=== PATIENT | female | born 1965 | race Caucasian/White ===

== ENCOUNTER 2017-03-25 05:59 | Inpatient (IN) | payer OTHER ==
[2017-02-19 13:16] VITALS: BMI 40.0
--- NOTE | 2017-02-19 13:37 | PAT Medication Instructions ---
Service Date February 19, 2017. Current Home Medication List Aspirin (Aspirin Ec), 81 MG PO DAILY PRN for Pain Atenolol (Tenormin), 50 MG PO HS Biotin (Biotin), 2 TAB PO HS Calcium/Vitamin D (Os-Roderick 500 Plus D), 2 TAB PO HS Fish Oil (Lewellen-3), 2 CAP PO HS Yzocsbqtzje-Mzfzogzvyoo-Ylj C- (Glucosamine Chondroitin), 1 TAB PO HS Ibuprofen (Advil), 400 MG PO 2XWK PRN for Pain Medication Instructions For Your Scheduled Surgery - Hold the following medications 2 weeks prior to surgery: Biotin (Biotin), 2 TAB PO HS Fish Oil (Lewellen-3), 2 CAP PO HS Wovszyqgqtu-Cmujcusptiv-Qnl C- (Glucosamine Chondroitin), 1 TAB PO HS - Hold the following medications per surgeon's instructions: Ibuprofen (Advil), 400 MG PO 2XWK PRN for Pain - Take the following medications as scheduled the night before surgery: Atenolol (Tenormin), 50 MG PO HS Calcium/Vitamin D (Os-Roderick 500 Plus D), 2 TAB PO HS Aspirin (Aspirin Ec), 81 MG PO DAILY PRN for Pain Nothing to eat or drink after midnight If you have any questions please call us at [phone] or [phone] or [phone]
[2017-02-19 14:16] LABS: BASO % 0.6 %; BASO ABS # 0.04 K/uL (0-0.2); COMPLETE YES; EOS % 2.6 %; HEMATOCRIT 41.3 % (37-47); IG% 0.2 %; LYMPH ABS # 1.99 K/uL (1.2-3.4); MEAN CELL VOLUME 91.8 fL (80-100); MEAN CORPUSCULAR HEMOGLOBIN 29.8 pg (25-34); MEAN CORPUSCULAR HGB CONC 32.4 g/dl (32-36); MONO % 6.2 %; NEUT % 60.4 %; PLATELET COUNT 251 K/uL (130-400); WHITE BLOOD COUNT 6.64 K/uL (4.8-10.8)
[2017-02-19 14:32] LABS: PROTHROMBIN TIME (PATIENT) 11.1 SECONDS (9.0-12.0)
[2017-02-19 14:51] LABS: URINE APPEARANCE CLEAR (CLEAR); URINE BILIRUBIN NEG (NEG); URINE COLOR YELLOW; URINE NITRITE NEG (NEG); URINE SPECIFIC GRAVITY 1.024 (1.000-1.030); UROBILINOGEN NEG (NEG); ZZUR CULT IF INDIC CLEAN CATCH NO
[2017-02-19 14:56] LABS: MANUAL MICROSCOPIC REQUIRED? NO; REVIEW REQ? NO
[2017-02-19 15:05] LABS: BUN/CREATININE RATIO 14.2 (10-20); CALCIUM 8.9 mg/dl (8.5-10.1); CREATININE 0.96 mg/dl (0.60-1.20); POTASSIUM 3.9 mmol/L (3.5-5.1)
[~2017-03-25] VITALS: Ht 165.1 cm; Wt 109.0 kg
[2017-03-25] VITALS (8 sets, daily range): BP systolic 92–130; BP diastolic 57–76; PULSE 67–100; TEMP 36.5–37; O2SAT 93–100; Ht 165.1 cm; Wt 109.0 kg
[~2017-03-25 05:59] MED LIST: ASPI81TA28 PO; ATEN50TA8 PO; BIOT1TAB5 PO; CALC500C70 PO; GLUCTAB7 PO; IBUP-1050 PO; OMEG10007 PO
[2017-03-25] MEDS ORDERED: CeleBREX 200 MG CAP PO SCH (06:00)
[2017-03-25] MEDS ORDERED: CEFAZOLIN 2000 MG/60 ML D5W 60 ML IV SCH (06:00)
[2017-03-25] MEDS ORDERED: DEXAMETHASONE 4 MG TAB PO SCH (06:00)
[2017-03-25] MEDS: ROPIVACAINE 5MG/ML 30 ML 150 MG, BUPIVACAINE/EPINEPHR 0.5% MPF 30 ML, KETOROLAC TROMETH... INFIL SCH ×14 (06:00→09:21)
[2017-03-25] MEDS ORDERED: POLYMYXIN B SULFATE 100,000 UNITS in NSS 100ML IR SCH (06:00)
[2017-03-25] MEDS ORDERED: GABAPENTIN 300 MG CAP PO SCH (06:00)
[2017-03-25] MEDS ORDERED: ACETAMINOPHEN 500 MG TAB PO SCH (06:00)
[2017-03-25] MEDS ORDERED: OXYCODONE HCL 10 MG TABCR (OXYCONTIN) PO SCH (06:00)
[2017-03-25] MEDS ORDERED: LACTATED RINGER'S 1000ML 500 ML IV ONE (06:00)
[2017-03-25] MEDS ORDERED: LACTATED RINGER'S 1000ML 1,000 ML IV SCH ×2 (06:00)
[2017-03-25] MEDS ORDERED: FAMOTIDINE 20 MG TAB PO SCH (06:00)
[2017-03-25] MEDS ORDERED: METOCLOPRAMIDE HCL 10 MG TAB PO SCH (06:00)
[2017-03-25] MEDS ORDERED: VANCOMYCIN INJ 400 MG in NSS 100ML IR SCH (06:00)
[2017-03-25] MEDS ORDERED: BUPIVACAINE 0.5 % 5 MG/1 ML PF 10ML VIAL ONE (06:30)
[2017-03-25] MEDS: TRANEXAMIC ACID INJ 1,000 MG in SODIUM CHLORIDE 0.9% 100ML 100 ML IV SCH ×2 (06:30→07:30)
[2017-03-25] MEDS ORDERED: BUPIVACAINE 0.25% 30 ML VIAL ONE (06:30)
--- NOTE | 2017-03-25 06:45 | History and Physical ---
History & Physical Date Mar 25, 2017. Chief Complaint R KNEE PAIN History of Present Illness The patient is a 52 year old female with complaints of 2 YRS R KNEE PAIN 8/10. C /O PAIN INSTABILITY AND DECREADED ROM. CANNOT WALK 2 BLOCKS, HAS FAILED NSAIDS AND INJECTIONS. XRAY CW SEVERE OA W DEFORMITY AND SCLEROSIS R GREATER THAN L. Past Medical/Surgical History Medical Problems: (1) Bilateral tubal ligation (2) Dilation and curettage (3) Hypertension Nos Additional History Hepatic Disease: No Endocrine Disorder: No Kidney Disease: No Hypertension: Yes Heart Disease: No Bleeding Tendencies: No Infectious Diseases: No Allergies Coded Allergies: No Known Allergies (Unverified , 02/19/17) Home Medications Scheduled Atenolol (Tenormin), 50 MG PO HS Biotin (Biotin), 2 TAB PO HS Calcium/Vitamin D (Os-Roderick 500 Plus D), 2 TAB PO HS Fish Oil (Plains-3), 2 CAP PO HS Optxnmmsrpc-Diijucgjiap-Wks C- (Glucosamine Chondroitin), 1 TAB PO HS Scheduled PRN Aspirin (Aspirin Ec), 81 MG PO DAILY PRN for Pain Ibuprofen (Advil), 400 MG PO 2XWK PRN for Pain Physical Examination Skin: warm/dry, no rash Eyes: normal inspection, EOMI, sclerae normal ENT: normal ENT inspection, pharynx normal Head: normocephalic, atraumatic Neck: supple, no adenopathy, trachea midline Respiratory/Chest: lungs clear, normal breath sounds, no respiratory distress Cardiovascular: regular rate, rhythm, no edema, no murmur Abdomen / GI: normal bowel sounds, non tender Back: normal inspection, + pertinent finding (ROM 0 TO 120 VARUS PAINFUL ROM 2PLUS EFFUSION 3 TO 5MM MEDIAL LAXITY DIFFUSE PAIN ) Diagnosis DJD KNEE HTN OBESITY ASA Classification: ASA Class II Plan of Treatment R TKA
[2017-03-25] MEDS ORDERED: MIDAZOLAM HCL 1 MG/ML 2ML VIAL ONE ×2 (07:00)
[2017-03-25] MEDS ORDERED: FENTANYL CITRATE INJ 50 MCG/1 ML 2 ML VIAL ONE (07:00)
[2017-03-25] MEDS ORDERED: PROPOFOL IV EMULSION 10 MG/ML 20 ML VIAL IV ONE (07:01)
[2017-03-25] MEDS ORDERED: LIDOCAINE HCL 2% 2 ML VIAL (20MG/ML) ONE (07:01)
[2017-03-25] MEDS ORDERED: EpHEDrine SULFATE 50MG/5ML SYR ONE (07:01)
[2017-03-25] MEDS ORDERED: BACITRACIN 50000 UNIT VIAL ONE (07:19)
[2017-03-25] MEDS ORDERED: ONDANSETRON INJ 2 MG/ML 2 ML VIAL ONE (09:01)
[2017-03-25] MEDS ORDERED: ONDANSETRON INJ 2 MG/ML 2 ML VIAL IV PRN ×2 (09:15→10:15)
[2017-03-25] MEDS ORDERED: KETOROLAC TROMETHAMINE 30 MG/ML VIAL IV. PRN ×2 (09:15→10:15)
[2017-03-25] MEDS ORDERED: EpHEDrine SULFATE INJ 50 MG/ML AMP IV PRN (09:15)
[2017-03-25] MEDS ORDERED: PHENYLEPHRINE 100MCG/ML 5ML SYR IV PRN (09:15)
[2017-03-25] MEDS ORDERED: HYDROmorphone INJ 2 MG/ML SYR/VIAL IV PRN (09:15)
[2017-03-25] MEDS ORDERED: ATROPINE SULFATE 0.1 MG/ML 5ML SYR IV PRN (09:15)
[2017-03-25] MEDS ORDERED: BUPIVACAINE/EPINEPHRINE 0.25% 1:200,000 30 ML VIAL ONE (10:00)
[2017-03-25] MEDS ORDERED: POVIDONE-IODINE OP SOLN 30 ML BTL ONE (10:00)
[2017-03-25] MEDS ORDERED: ORTHO JOINT ANESTHETIC ONE (10:00)
--- NOTE | 2017-03-25 10:02 | [facility] Post Operative Brief Note ---
Immediate Operative Summary Operative Date Mar 25, 2017. Pre-Operative Diagnosis Degenerative joint disease right knee Post-Operative Diagnosis Same as pre-operative Procedure(s) Performed Right total knee arthroplasty Surgeon Dr. Jonnathan Boucher MD Wound Specialist Surgeon(s) John Dawson PA-C Estimated Blood Loss 75ml Findings SEVERE DZ Specimens A. Bone and tissue right knee Complication(s) None Disposition Recovery Room / PACU
[2017-03-25] MEDS ORDERED: MoRPHine SULFATE 2 MG/ML CARP IV PRN (10:15)
[2017-03-25] MEDS ORDERED: ZOLPIDEM TARTRATE 5 MG TAB PO PRN (10:15)
[2017-03-25] MEDS ORDERED: OXYCODONE HCL IR 5 MG TAB (IMMEDIATE RELEASE) PO PRN (10:15)
[2017-03-25] MEDS ORDERED: ALUMINUM/MAGNESIUM/SIMETH (MAALOX MAX) 30 ML UDC PO PRN (10:15)
[2017-03-25] MEDS ORDERED: BISACODYL 10 MG SUPP PR PRN (10:15)
[2017-03-25] MEDS ORDERED: METOCLOPRAMIDE HCL INJ 5 MG/ML 2 ML VIAL IV PRN (10:15)
[2017-03-25] MEDS ORDERED: SOD PHOSPHATE/SOD BIPHOSPHATE ENEMA 132 ML BTL PR PRN (10:15)
[2017-03-25] MEDS ORDERED: MAGNESIUM HYDROXIDE SUSP 30 ML UDC PO PRN (10:15)
[2017-03-25] MEDS ORDERED: DiphenhydrAMINE HCL 50 MG/ML VIAL IV PRN (10:15)
--- NOTE | 2017-03-25 11:06 | DIAGNOSTIC IMAGING REPORT ---
RIGHT KNEE 1 OR 2 VIEWS ROUTINE CLINICAL HISTORY: Status post total right knee arthroplasty. COMPARISON: None FINDINGS: Alignment of the total right knee arthroplasty is anatomic. There is no fracture or unexpected radiopaque foreign body. Drains are in place. IMPRESSION: Expected findings following total right knee arthroplasty. Electronically signed by: Tomi Neri M.D. 03/25/2017 11:04 AM Dictated Date/Time: 03/25/2017 11:04 AM
--- NOTE | 2017-03-25 11:37 | Anesthesiology Progress Note ---
Anesthesia Post Op Note Date & Time Mar 25, 2017 at 11:38 Vital Signs Pain Intensity: 0 Vital Signs Past 12 Hours Date Time Temp Pulse Resp B/P (MAP) Pulse Ox O2 Delivery O2 Flow Rate FiO2 03/25/17 11:15 36.2 71 15 111/66 99 Nasal Cannula 2 03/25/17 11:05 75 18 96/58 96 Nasal Cannula 2 03/25/17 10:55 75 15 97/66 96 Nasal Cannula 2 03/25/17 10:45 79 10 94/50 97 Nasal Cannula 2 03/25/17 10:39 36.0 85 12 97/53 97 Nasal Cannula 2 03/25/17 06:47 36.5 70 20 105/76 96 Room Air Notes Mental Status: alert / awake / arousable, participated in evaluation Pt Amnestic to Procedure: Yes Nausea / Vomiting: adequately controlled Pain: adequately controlled Airway Patency, RR, SpO2: stable & adequate BP & HR: stable & adequate Hydration State: stable & adequate Anesthetic Complications: no major complications apparent
[2017-03-25] MEDS: D5W AND 1/2NSS + 20MEQ KCL 1,000 ML IV SCH ×2 (12:52→22:27)
[2017-03-25] MEDS: ACETAMINOPHEN 500 MG TAB PO SCH ×2 (13:18→21:27)
[2017-03-25] MEDS: TRAMADOL HCL 50 MG TAB PO PRN ×2 (15:43→19:48)
[2017-03-25] MEDS: CEFAZOLIN IV 2,000 MG in DEXTROSE 5% 50ML 50 ML IV SCH (15:44)
[2017-03-25] MEDS ORDERED: TRANEXAMIC ACID INJ 1,000 MG in SODIUM CHLORIDE 0.9% 100ML 100 ML IV ONE (17:00)
[2017-03-25] MEDS ORDERED: NURSING VERBAL MED ORDER ONE (18:15)
[2017-03-25] MEDS ORDERED: SENNA 8.6 MG TAB PO SCH (21:00)
[2017-03-25] MEDS ORDERED: CALCIUM 600MG + VIT D 400 IU TAB PO SCH (21:00)
[2017-03-25] MEDS: ASPIRIN 81 MG ECTAB PO SCH (21:26)
[2017-03-25] MEDS: CeleBREX 200 MG CAP PO SCH (21:27)
--- NOTE | 2017-03-25 21:40 | OPERATIVE REPORT ---
DATE OF OPERATION: 03/25/2017 PREOPERATIVE DIAGNOSIS: Degenerative arthritis, right knee. POSTOPERATIVE DIAGNOSIS: Same. PROCEDURE: Right total knee patient matched implant. SURGEON: Dr. Boucher. ASSISSTANT: LUIZ Dowell. ANESTHESIA: Spinal. BLOOD LOSS: 75 mL. REPLACEMENT FLUIDS: 1800 mL crystalloid. DRAINS: Hemovac x2. CULTURES: None. COMPLICATIONS: None. COMPONENTS USED: [employer] [facility] Knee System: Femur size 5, tibia size 4 x 11, patella size 35. NOTE: LUIZ Dowell, was present and assisted throughout due to the complicated nature of this case. He helped with preparation and set up. He first assisted throughout and personally closed the capsule, subcutaneous and skin layers and applied the postoperative dressing. DESCRIPTION: Following satisfactory spinal, the patient was supine. A tourniquet was placed but not inflated. The lower extremity was prepared with ChloraPrep and draped sterilely. Following a surgical time-out, a midline incision was made with a median trivector approach. The knee showed marked grade 4 changes in all compartments. The cruciate ligaments were deteriorated and were excised. The patient matched femoral block was applied. Femoral distal rotation and resection was set and completed. The 4-in-1 block was used to finish preparation of the femur. The patient matched tibial block was applied. Tibial resection was completed. The patella was freehand cut. Soft tissue balancing was then completed and a trial reduction showed good tensioning stability on the collateral ligament, and the patella tracked well. The trial components were removed, the capsule was prepared with the orthopedic cocktail and after irrigation, the components were cemented using Simplex G cement. A Betadine soak was performed. After 3 minutes, the Betadine was irrigated. Two drains were placed. The arthrotomy was closed with a running suture of 0 V-Loc and reinforced with 1 Vicryl, the subcutaneous tissues with 2-0 Vicryl. Skin with a running subcuticular stitch of 3-0 V-Loc. Dermabond and a dry dressing were applied. The patient was returned to her bed in stable condition. I attest to the content of the Intraoperative Record and any orders documented therein. Any exceptions are noted below. MTDD
[2017-03-26] MEDS: TRAMADOL HCL 50 MG TAB PO PRN ×3 (00:51→11:53)
[2017-03-26] MEDS: CEFAZOLIN IV 2,000 MG in DEXTROSE 5% 50ML 50 ML IV SCH (00:51)
[2017-03-26 04:07] VITALS: BP 108/70; PULSE 71; TEMP 36.6; O2SAT 97
[2017-03-26 05:39] LABS: HEMATOCRIT 35.4 % (37-47); MEAN CELL VOLUME 91.2 fL (80-100); MEAN CORPUSCULAR HEMOGLOBIN 29.4 pg (25-34); MEAN CORPUSCULAR HGB CONC 32.2 g/dl (32-36); MEAN PLATELET VOLUME 10.9 fL (7.4-10.4); PLATELET COUNT 220 K/uL (130-400); RED BLOOD COUNT 3.88 M/uL (4.2-5.4); WHITE BLOOD COUNT 14.19 K/uL (4.8-10.8)
[2017-03-26 06:14] LABS: BUN/CREATININE RATIO 14.1 (10-20); CALCIUM 8.3 mg/dl (8.5-10.1); CREATININE 0.95 mg/dl (0.60-1.20); POTASSIUM 4.3 mmol/L (3.5-5.1)
[2017-03-26] MEDS: ACETAMINOPHEN 500 MG TAB PO SCH (06:28)
[2017-03-26] MEDS: CeleBREX 200 MG CAP PO SCH (06:28)
--- NOTE | 2017-03-26 07:04 | Orthopedic Progress Note ---
Orthopedic Progress Note Date of Service Mar 26, 2017. Subjective Post OP Day: 1 Reports: feeling well, pain controlled w PO medications, Denies: complaints, chest pain, SOB, nausea / vomiting, light headedness, calf pain Objective calves soft nontender, N/V intact, dressing C/D/I, A&O x3, toes mobile, hemovac drainage (minimal) Date Time Temp Pulse Resp B/P (MAP) Pulse Ox O2 Delivery O2 Flow Rate FiO2 03/26/17 04:07 36.6 71 16 108/70 (83) 97 Room Air 03/26/17 00:50 Room Air 03/25/17 22:49 36.5 81 16 112/71 (85) 93 Room Air 03/25/17 19:50 36.5 92 17 128/73 (91) 95 Room Air 03/25/17 15:30 Room Air 03/25/17 14:24 84 16 124/75 (91) 98 Room Air 03/25/17 12:53 36.5 100 16 130/75 (93) 100 Nasal Cannula 2.0 03/25/17 12:27 76 16 109/67 (81) 98 Nasal Cannula 2.0 03/25/17 12:00 75 16 105/62 (76) 98 Nasal Cannula 2.0 03/25/17 11:30 98 Nasal Cannula 2.0 03/25/17 11:30 37.0 67 16 92/57 (69) 98 Nasal Cannula 2.0 03/25/17 11:30 Nasal Cannula 2.0 03/25/17 11:15 36.2 71 15 111/66 99 Nasal Cannula 2 03/25/17 11:05 75 18 96/58 96 Nasal Cannula 2 03/25/17 10:55 75 15 97/66 96 Nasal Cannula 2 03/25/17 10:45 79 10 94/50 97 Nasal Cannula 2 03/25/17 10:39 36.0 85 12 97/53 97 Nasal Cannula 2 Laboratory Results 24 Hours: Test 03/26/17 05:15 Hematocrit 35.4 % Hemoglobin 11.4 g/dL Assessment & Plan Assessment: POD 1 s/p Right TKA Plan: PT/OT today Planning for OPPT at [facility] Likely plan for dc to home today if progressing well. Inhouse Planning Pain Management: Celebrex, Morphine, PO Tylenol, Oxy IR DVT Prophylaxis: TEDs, SCDs, ASA Discharge Planning Discharge Planning: home with oppt Pain Management: Celebrex, Ultram, PO Tylenol, Oxy IR DVT Prophylaxis: TEDs, ASA Therapy: Physical Therapy
[2017-03-26] MEDS ORDERED: ULT50X PO (07:08)
[2017-03-26] MEDS ORDERED: RXC5 PO (07:08)
[2017-03-26] MEDS ORDERED: CLB200 PO (07:08)
[2017-03-26] MEDS ORDERED: SNK PO (07:08)
[2017-03-26] MEDS ORDERED: ACET-1138 PO (07:08)
[2017-03-26] MEDS ORDERED: ASPI81TA28 PO (07:08)
[2017-03-26] MEDS ORDERED: MORP15TA19 PO (07:12)
[2017-03-26] MEDS ORDERED: ONDA8TAB6 PO (07:12)
--- NOTE | 2017-03-26 07:19 | Discharge Instructions ---
Discharge Instructions Date of Service Mar 26, 2017. Admission Reason for Admission: Right Knee Degenerative Arthritis Discharge Discharge Diagnosis / Problem: Djd Right Knee Discharge Goals Goal(s): Decrease discomfort, Improve function Activity Recommendations Activity Limitations: per Instructions/Follow-up section Weightbearing Status: Right weightbearing (as tolerated) . Instructions / Follow-Up Instructions / Follow-Up ACTIVITY RECOMMENDATIONS: SELF CARE INSTRUCTIONS AFTER TOTAL KNEE REPLACEMENT A. You may need to continue a physical therapy program after discharge from the hospital. There are several options available to you. Your doctor will assist you in selecting the best one for you. 1. An out-patient facility 2 to 3 times a week for therapy or home therapy. 2. Continue working on all exercises taught to you in the hospital. Your goals should be to increase bending of your knee to 90 degrees and beyond and to fully straighten your knee. B. You may progress at your own pace from walking with a walker or crutches to a cane; then to no assistive devices. C. Make walking a part of your daily routine. Be up as much as comfortable with rest periods throughout the day. Rest with leg elevation is very important. Use the ice wrap frequently for the first 3-4 weeks. D. There are no restrictions on activities. You may ride in a car, shop, participate in stroke belt sander operator and all social activities. E. Wear the long elastic stockings (MISTY hose) 20 hours a day for 2 weeks after surgery. They can be removed several times a day for laundering and for a bath. F. You may shower, no tub baths until cleared by your doctor. SPECIAL CARE INSTRUCTIONS: VERY IMPORTANT TO READ AND REVIEW A. There are a few signs you need to watch for after you are home. Call [facility] if you notice any of the followin. Increased severe knee pain. Some pain is expected especially when you exercise. 2. Increased swelling in your leg or knee; pain or swelling of the calf muscle in either lower leg. 3. Any fluid drainage from the incision. 4. Shortness of breath or chest pain. B. Please call [facility] at if you have any concerns or questions about your operation or recovery. The doctor or his nurse will return your call promptly. C. You must take antibiotics before dental work, bladder, bowel or other surgery. Your doctor will provide you with a permanent care to carry describing this precaution. IMPORTANT: * REMEMBER TO TAKE ASPIRIN, 81 MG, TWICE DAILY FOR 4 WEEKS UNLESS OTHERWISE DIRECTED. THIS IS YOUR BLOOD THINNER. * HIGH RISK PATIENTS MAY BE PRESCRIBED A STRONGER BLOOD THINNER. THIS WILL BE PROVIDED AT DISCHARGE. * CALL IF INCREASED PAIN, REDNESS, DRAINAGE OR FEVER GREATER THAT 101. * WEAR MISTY HOSE 20 HOURS PER DAY FOR 2 WEEKS. * DERMABOND Prineo- This is a mesh tape dressing that is covered with glue. It should remain in place until the incision is properly healed, usually 10-14 days. This dressing is designed to naturally slough off. You may trim the excess mesh tape as it peels off. Incision may be briefly wet in a shower. Dry immediately by blotting with a clean, dry towel. Do not bath or swim until instructed by your doctor. Do not scratch, rub, or pick at the dressing. Do not apply any topical ointments or lotions until dressing is completely removed and/or instructed by your doctor. There may be a small piece of suture material at one end of your incision. Do not pull or trim this. If it is bothersome or catching on clothing, you may cover it with a band-aid. . FOLLOW UP VISIT: If appointment is not already scheduled: Please call [facility] to make a follow-up appointment for 2 weeks after your surgery at . Current Hospital Diet Patient's current hospital diet: Regular Diet Discharge Diet Recommended Diet: Regular Diet Procedures Procedures Performed: Right total knee arthroplasty Pending Studies Studies pending at discharge: no Medical Emergencies . Who to Call and When: Medical Emergencies: If at any time you feel your situation is an emergency, please call 911 immediately. . Non-Emergent Contact Non-Emergency issues call your: Surgeon Call Non-Emergent contact if: temperature is above 101.5, your pain is not controlled, your pain is worsening, wound has increased drainage, wound has increased redness . "Provider Documentation" section prepared by John Dawson. . VTE Core Measure Inpt VTE Proph given/why not?: Other Anticoagulation, T.E.D. Stockings, SCD's [place] Drug Monitoring Program Search Results: patient reviewed within database, no issues identified
[2017-03-26 07:49] VITALS: BP 112/72; PULSE 62; TEMP 36.5; O2SAT 97
--- NOTE | 2017-03-26 08:33 | Anesthesiology Progress Note ---
Anesthesia Post Op Note Date & Time Mar 26, 2017 at 08:33 Vital Signs Pain Intensity: 5.0 Vital Signs Past 12 Hours Date Time Temp Pulse Resp B/P (MAP) Pulse Ox O2 Delivery O2 Flow Rate FiO2 03/26/17 07:49 36.5 62 17 112/72 (85) 97 Room Air 03/26/17 07:15 Room Air 03/26/17 04:07 36.6 71 16 108/70 (83) 97 Room Air 03/26/17 00:50 Room Air 03/25/17 22:49 36.5 81 16 112/71 (85) 93 Room Air Notes Mental Status: alert / awake / arousable, participated in evaluation Pt Amnestic to Procedure: Yes Nausea / Vomiting: adequately controlled Pain: adequately controlled Airway Patency, RR, SpO2: stable & adequate BP & HR: stable & adequate Hydration State: stable & adequate Neuraxial Anesthesia: sensory block resolved Anesthetic Complications: no major complications apparent
[2017-03-26] MEDS: ASPIRIN 81 MG ECTAB PO SCH (08:39)
[2017-03-26] MEDS ORDERED: PANTOprazole SOD 40 MG TAB PO SCH (09:00)
[2017-03-26] MEDS ORDERED: MULTIVITAMIN TAB PO SCH (09:00)
[2017-03-26] MEDS ORDERED: NURSING VERBAL MED ORDER ONE (10:15)
[2017-03-26 10:40] VITALS: BP 130/81; PULSE 82; O2SAT 96
[2017-03-26 11:41] VITALS: BP 112/72; PULSE 62; TEMP 36.5; O2SAT 97
--- NOTE | 2017-03-26 18:57 | DISCHARGE SUMMARY ---
DISCHARGE DIAGNOSIS: Degenerative joint disease, right knee. SECONDARY DIAGNOSIS: Hypertension. CONSULTS: None. COMPLICATIONS: None. PROCEDURES: Right total knee arthroplasty performed by Dr. Zhen Boucher on 03/25/2017. BRIEF HISTORY: As dictated in history and physical. HOSPITAL SUMMARY: The patient was admitted on the above-noted date and had the above-noted surgery performed, which she tolerated well. On her first postoperative day, she was feeling well and pain was controlled. She had no complaints and calves were soft and nontender, neurovascular intact. Dressings clean, dry and intact. Toes were mobile. Hemovac drainage was minimal. Vital signs were stable. She was afebrile. Hemoglobin was 11.4 and she was started on physical therapy protocol and continued on DVT prophylaxis and pain management. In physical therapy she obtained 103 degrees of flexion and had ambulated 725 feet. She was progressing well with physical therapy and remaining stable and it was felt she could be discharged to home. For further review, please see chart. LAB AND X-RAY DATA: As per chart. DISCHARGE INSTRUCTIONS: The patient was discharged to home in satisfactory condition on 03/26/2017. DIET: Regular. ACTIVITY: Weightbearing as tolerated right lower extremity. Follow TK instruction sheets and special care instructions as noted. Follow up with Dr. Boucher in 2 weeks. The patient to call for appointment if one has not been made for you. DISCHARGE MEDICATIONS: Acetaminophen 1000 mg p.o. q. 8 hours, Celebrex 200 mg p.o. b.i.d., MS Contin 15 mg p.o. q. 12 hours, Zofran 8 mg p.o. t.i.d. p.r.n. nausea, oxycodone 5-10 mg p.o. q. 4 hours p.r.n., senna 17.2 mg p.o. at bedtime. Resume taking atenolol 50 mg p.o. at bedtime, biotin 1000 mg p.o. 2 tabs at bedtime, calcium 2 tabs p.o. at bedtime, fish oil 2 caps at bedtime, glucosamine 1 tab p.o. at bedtime, aspirin changed to 81 mg p.o. b.i.d. for 30 days once 30 days is passed resume regular once daily dosing. Stop taking ibuprofen.
[2017-03-27] MEDS ORDERED: CeleBREX 200 MG CAP PO SCH (21:00)
== END 2017-03-26 12:15 | disposition home or self-care (01) | DRG 470 ==
LOC: C.ACU 05:59 → C.3E 10:05 → ENRESERV 11:04
PROVIDERS: ADMIT Orthopaedic Surgery; ATTEND Orthopaedic Surgery
PROC: 0SRC0J9 Replacement of Right Knee Joint with Synthetic Substitute, Cemented, Open Approach (ICD-10-PCS; principal; 2017-03-25 08:00)
DX: M17.11 Unilateral primary osteoarthritis, right knee (principal); Z68.41 Body mass index [BMI] 40.0-44.9, adult; M21.161 Varus deformity, not elsewhere classified, right knee; M25.461 Effusion, right knee; I10 Essential (primary) hypertension; E66.01 Morbid (severe) obesity due to excess calories; Z79.82 Long term (current) use of aspirin; Z79.899 Other long term (current) drug therapy

== ENCOUNTER 2017-04-29 05:18 | Inpatient (IN) | payer OTHER ==
[2017-02-19 15:21] VITALS: BMI 40.0
[2017-04-19 16:54] LABS: BASO % 0.4 %; BASO ABS # 0.03 K/uL (0-0.2); COMPLETE YES; HEMATOCRIT 39.2 % (37-47); IG% 0.2 %; LYMPH ABS # 1.77 K/uL (1.2-3.4); MEAN CELL VOLUME 93.8 fL (80-100); MEAN CORPUSCULAR HEMOGLOBIN 30.1 pg (25-34); MEAN CORPUSCULAR HGB CONC 32.1 g/dl (32-36); MEAN PLATELET VOLUME 11.2 fL (7.4-10.4); MONO % 7.2 %; NEUT % 65.2 %; PLATELET COUNT 274 K/uL (130-400); RED BLOOD COUNT 4.18 M/uL (4.2-5.4); WHITE BLOOD COUNT 8.06 K/uL (4.8-10.8)
[2017-04-19 17:05] LABS: BLOOD UREA NITROGEN 14 mg/dl (7-18); BUN/CREATININE RATIO 16.1 (10-20); CALCIUM 9.2 mg/dl (8.5-10.1); CARBON DIOXIDE 27 mmol/L (21-32); CHLORIDE 105 mmol/L (98-107); CREATININE 0.88 mg/dl (0.60-1.20); GLUCOSE 89 mg/dl (70-99); POTASSIUM 4.1 mmol/L (3.5-5.1); PROTHROMBIN TIME (PATIENT) 10.5 SECONDS (9.0-12.0); SODIUM 138 mmol/L (136-145)
[2017-04-24 13:40] LABS: URINE APPEARANCE CLEAR (CLEAR); URINE BILIRUBIN NEG (NEG); URINE COLOR YELLOW; URINE NITRITE NEG (NEG); URINE SPECIFIC GRAVITY 1.028 (1.000-1.030); UROBILINOGEN NEG (NEG)
[2017-04-24 13:44] LABS: MANUAL MICROSCOPIC REQUIRED? NO; REVIEW REQ? NO
[2017-04-24 14:03] LABS: ESTIMATED AVERAGE GLUCOSE 114 mg/dl; HA1C FLAG Normal (Normal)
[2017-04-26 18:37] VITALS: BMI 40.0
--- NOTE | 2017-04-28 20:36 | History and Physical ---
History & Physical Date Apr 28, 2017. Chief Complaint LEFT KNEE PAIN History of Present Illness The patient is a 52 year old female with complaints of left knee pain for several years. Patient rates her pain an 8/10. She has pain with daily activities. She has limited standing and walking tolerance. Her pain is worse with weight bearing. Patient has failed NSAIDS, PT, and injections. She is scheduled for left TKA with Dr. Earl. Past Medical/Surgical History Medical Problems: (1) Bilateral tubal ligation (2) Dilation and curettage (3) Hypertension Nos Surgical Problems: (1) Post-operative state Additional History Hepatic Disease: No Endocrine Disorder: No Kidney Disease: No Hypertension: Yes Heart Disease: No Bleeding Tendencies: No Infectious Diseases: No Allergies Coded Allergies: No Known Allergies (Unverified , 04/26/17) Home Medications Scheduled Acetaminophen (Tylenol Extra Strength), 1,000 MG PO Q8H Atenolol (Tenormin), 50 MG PO HS Biotin (Biotin), 2 TAB PO HS Calcium/Vitamin D (Os-Roderick 500 Plus D), 2 TAB PO HS Celecoxib (Celebrex), 200 MG PO BID Fish Oil (Garfield-3), 2 CAP PO HS Trekxumjzda-Zjbqxxcrdnv-Smw C- (Glucosamine Chondroitin), 1 TAB PO HS Morphine Cont Rel (Ms Contin), 15 MG PO Q12 Senna (Senna Lax), 17.2 MG PO HS Scheduled PRN Aspirin (Aspirin Ec), 81 MG PO BID PRN for Pain Ondansetron Hcl (Zofran), 8 MG PO TID PRN for Nausea Oxycodone HCl (Oxycodone HCl), 5-10 MG PO Q4H PRN for Pain Physical Examination Skin: warm/dry, no rash Eyes: normal inspection, EOMI, sclerae normal ENT: normal ENT inspection, pharynx normal Head: normocephalic, atraumatic Neck: supple, no adenopathy, trachea midline Respiratory/Chest: lungs clear, normal breath sounds, no respiratory distress Cardiovascular: regular rate, rhythm, no edema, no murmur Abdomen / GI: normal bowel sounds, non tender Back: normal inspection Extremities: normal inspection, normal range of motion, + pertinent finding ( varus deformity, moderate effusion, moderate joint line tenderness, +2 medial laxity, ROM 3-110) Neurologic/Psych: no motor/sensory deficits, alert, normal reflexes, oriented x 3 Diagnosis DJD LEFT KNEE Plan of Treatment Patient will proceed with left TKA as scheduled. Plan out outpatient physical therapy upon discharge.
[2017-04-29] VITALS (10 sets, daily range): BP systolic 90–122; BP diastolic 55–73; PULSE 67–97; TEMP 36.4–36.8; O2SAT 92–96; Ht 165.1 cm; Wt 109.0 kg
[~2017-04-29] VITALS: Ht 165.1 cm; Wt 109.0 kg
[~2017-04-29 05:18] MED LIST changes: +ACET-1138 PO; +CLB200 PO; -IBUP-1050 PO; +MORP15TA19 PO; +ONDA8TAB6 PO; +RXC5 PO; +SNK PO
[2017-04-29] MEDS ORDERED: LACTATED RINGER'S 1000ML 500 ML IV ONE (06:00)
[2017-04-29] MEDS ORDERED: METOCLOPRAMIDE HCL 10 MG TAB PO SCH (06:00)
[2017-04-29] MEDS ORDERED: GABAPENTIN 300 MG CAP PO SCH (06:00)
[2017-04-29] MEDS ORDERED: ROPIVACAINE 5MG/ML 30 ML 150 MG, BUPIVACAINE/EPINEPHR 0.5% MPF 30 ML, KETOROLAC TROMETH... INFIL SCH ×7 (06:00)
[2017-04-29] MEDS ORDERED: LACTATED RINGER'S 1000ML 1,000 ML IV SCH (06:00)
[2017-04-29] MEDS ORDERED: FAMOTIDINE 20 MG TAB PO SCH (06:00)
[2017-04-29] MEDS ORDERED: LACTATED RINGER'S 1000ML IV SCH (06:00)
[2017-04-29] MEDS ORDERED: DEXAMETHASONE 4 MG TAB PO SCH (06:00)
[2017-04-29] MEDS ORDERED: CeleBREX 200 MG CAP PO SCH ×2 (06:00→21:00)
[2017-04-29] MEDS ORDERED: CEFAZOLIN 3000 MG/65 ML D5W 65 ML IV SCH (06:00)
[2017-04-29] MEDS ORDERED: ACETAMINOPHEN 500 MG TAB PO SCH (06:00)
[2017-04-29] MEDS ORDERED: CEFAZOLIN 2000 MG/60 ML D5W 60 ML IV SCH (06:00)
[2017-04-29] MEDS ORDERED: BUPIVACAINE 0.5 % 5 MG/1 ML PF 10ML VIAL ONE (06:28)
[2017-04-29] MEDS ORDERED: BUPIVACAINE 0.25% 30 ML VIAL ONE (06:28)
[2017-04-29] MEDS: TRANEXAMIC ACID INJ 1,000 MG in SODIUM CHLORIDE 0.9% 100ML 100 ML IV SCH ×2 (06:30→06:55)
[2017-04-29] MEDS ORDERED: MIDAZOLAM HCL 1 MG/ML 2ML VIAL ONE ×2 (06:43→06:44)
[2017-04-29] MEDS ORDERED: FENTANYL CITRATE INJ 50 MCG/1 ML 2 ML VIAL ONE (06:44)
[2017-04-29] MEDS ORDERED: ORTHO JOINT ANESTHETIC ONE (06:45)
[2017-04-29] MEDS ORDERED: BACITRACIN 50000 UNIT VIAL ONE (06:45)
[2017-04-29] MEDS ORDERED: POVIDONE-IODINE OP SOLN 30 ML BTL ONE (06:45)
--- NOTE | 2017-04-29 06:46 | History & Physical Bridge Note ---
H&P Re-Evaluation Bridge Note: I have examined the patient, reviewed the History & Physical and in the interval since the performance of the History & Physical I have noted the following changes of clinical significance: No changes noted
[2017-04-29] MEDS ORDERED: ONDANSETRON INJ 2 MG/ML 2 ML VIAL ONE (07:36)
[2017-04-29] MEDS ORDERED: PROPOFOL IV EMULSION 10 MG/ML 20 ML VIAL IV ONE (07:36)
[2017-04-29] MEDS ORDERED: EpHEDrine SULFATE 50MG/5ML SYR ONE (07:36)
[2017-04-29] MEDS ORDERED: LIDOCAINE HCL 2% 2 ML VIAL (20MG/ML) ONE (07:36)
--- NOTE | 2017-04-29 10:06 | [facility] Post Operative Brief Note ---
Immediate Operative Summary Operative Date Apr 29, 2017. Pre-Operative Diagnosis Degenerative joint disease left knee Post-Operative Diagnosis Degenerative joint disease left knee Procedure(s) Performed Left total knee arthroplasty Surgeon Dr. Bismark Earl MD Meat Inspector Surgeon(s) Lakesha Nagy PA-C Estimated Blood Loss 20ml Findings above Specimens A. Bone and tissue from left knee Drains 2 hemovac Anesthesia spinal, adductor Complication(s) None Disposition Recovery Room / PACU
[2017-04-29] MEDS ORDERED: KETOROLAC TROMETHAMINE 30 MG/ML VIAL IV. PRN (10:15)
[2017-04-29] MEDS ORDERED: METOCLOPRAMIDE HCL INJ 5 MG/ML 2 ML VIAL IV PRN (10:15)
[2017-04-29] MEDS ORDERED: ONDANSETRON INJ 2 MG/ML 2 ML VIAL IV PRN (10:15)
[2017-04-29] MEDS ORDERED: MoRPHine SULFATE 2 MG/ML CARP IV PRN (10:15)
[2017-04-29] MEDS ORDERED: ASPIRIN 81 MG ECTAB PO PRN (10:15)
[2017-04-29] MEDS ORDERED: ZOLPIDEM TARTRATE 5 MG TAB PO PRN (10:15)
[2017-04-29] MEDS ORDERED: ALUMINUM/MAGNESIUM/SIMETH (MAALOX MAX) 30 ML UDC PO PRN (10:15)
[2017-04-29] MEDS ORDERED: MAGNESIUM HYDROXIDE SUSP 30 ML UDC PO PRN (10:15)
[2017-04-29] MEDS ORDERED: ATROPINE SULFATE 0.1 MG/ML 5ML SYR IV PRN (10:30)
[2017-04-29] MEDS ORDERED: EpHEDrine SULFATE INJ 50 MG/ML AMP IV PRN (10:30)
--- NOTE | 2017-04-29 11:00 | DIAGNOSTIC IMAGING REPORT ---
LEFT KNEE 1 OR 2 VIEWS ROUTINE CLINICAL HISTORY: 52 years-old Female presenting with Post-op Left Total Knee Arthroplasty. TECHNIQUE: Frontal and lateral views of the left knee were obtained. COMPARISON: None. FINDINGS: Left total knee arthroplasty with patellar resurfacing noted. No acute fracture or hardware competition. Expected postsurgical gas within the knee joint and subcutaneous soft tissues. A surgical drain is noted in the operative bed. IMPRESSION: 1. Expected postsurgical finding status post left total knee arthroplasty. Electronically signed by: Bismark Loza 04/29/2017 10:59 AM Dictated Date/Time: 04/29/2017 10:57 AM
--- NOTE | 2017-04-29 11:37 | Anesthesiology Progress Note ---
Anesthesia Post Op Note Date & Time Apr 29, 2017 at 11:37 Vital Signs Pain Intensity: 0.0 Vital Signs Past 12 Hours Date Time Temp Pulse Resp B/P (MAP) Pulse Ox O2 Delivery O2 Flow Rate FiO2 04/29/17 11:00 Room Air 04/29/17 11:00 73 16 95/41 97 Room Air 04/29/17 10:50 77 19 98/56 98 Room Air 04/29/17 10:40 36.3 72 16 107/56 97 Room Air 04/29/17 10:30 75 22 107/56 98 Room Air 04/29/17 10:20 74 20 86/45 98 Room Air 04/29/17 10:10 70 16 109/54 95 Room Air 04/29/17 10:00 77 14 103/50 97 Room Air 04/29/17 09:50 83 22 94/69 97 Room Air 04/29/17 09:40 76 14 103/49 96 Room Air 04/29/17 09:30 80 19 97/43 100 Mask 04/29/17 09:21 36.0 74 16 106/52 98 Mask 10 04/29/17 05:59 36.7 68 18 110/68 96 Room Air Notes Mental Status: alert / awake / arousable, participated in evaluation Pt Amnestic to Procedure: Yes Nausea / Vomiting: adequately controlled Pain: adequately controlled Airway Patency, RR, SpO2: stable & adequate BP & HR: stable & adequate Hydration State: stable & adequate Neuraxial Anesthesia: was administered, sensory block is resolving Anesthetic Complications: no major complications apparent
[2017-04-29] MEDS: D5W AND 1/2NSS + 20MEQ KCL 1,000 ML IV SCH ×2 (11:49→21:59)
[2017-04-29] MEDS: FERROUS GLUCONATE 324 MG TAB PO SCH ×2 (12:44→17:40)
--- NOTE | 2017-04-29 12:53 | [facility] Operative Report ---
Operative Report Operative Date Apr 29, 2017. Pre-Operative Diagnosis Degenerative joint disease left knee Post-Operative Diagnosis Degenerative joint disease left knee Procedure(s) Performed Left total knee arthroplasty Surgeon Dr. Bismark Earl MD [employer] Professor Surgeon(s) Lakesha Nagy PA-C Estimated Blood Loss 20ml Findings above Specimens A. Bone and tissue from left knee Drains 2 hemovac Anesthesia spinal, adductor Disposition Recovery Room / PACU Indications 52-year-old female long-standing degenerative joint disease the left knee. She is failed conservative measures including injection and anti-inflammatories and rehabilitation. She wishes to proceed with left total knee arthroplasty. Description of Procedure Risks benefits and alternatives of surgery including but not limited to infection DVT pain stiffness need for surgery damage to blood vessels damage to nerves or risks of anesthesia were discussed with the patient and she wished to proceed. Patient was identified in the laterality was confirmed and marked. She received a preoperative antibiotic is also a spinal anesthetic and a abductor canal block. A well-padded tourniquet was applied and then the limb was prepped and draped in standard manner with ChloraPrep. The limb was exsanguinated and the tourniquet was inflated. I made a standard anterior Incision. I sharply incised the skin then utilized Bovie electrocautery as well as the aqua mantis to achieve hemostasis. I made a medial parapatellar arthrotomy immobilized the patella laterally. I then excised the anterior horns of the medial and lateral meniscus as well as the infrapatellar fat pad. I then pinned into place a patient-matched distal femoral cutting guide and made my distal femoral resection. I then pinned into place a size 4 5 in 1 cutting guide. I made my anterior, posterior and chamfer cuts. I then excised the cruciates and the remaining portions of the menisci. I then pinned into place A patient-matched tibial cutting guide and made my tibial resection. I then pinned into place a size 3 tibia utilizing alignment rods to confirm rotation. I then cut for the post. Utilizing a lamina comfort station attendant and then removed posterior osteophytes off the femur. I then placed a trial femur into position and cut for the trochlear component. I then sequentially trialed to size 11 tibia. There was good soft tissue balancing and range of motion with a 11 tibia. I then prepared the patella with a freehand cut utilizing sagittal saw. I sized and drilled for a size 32 patella. There was good tracking to the patella no lateral release was needed. All the trial components were removed. The deep tissues were anesthetized with and ortho mix solution. Then with Simplex HV with gent cement I cemented my definitive components. This was a femur 4 tibia 3 poly 11, patella 32. A deep drain was placed. The arthrotomy was closed with interrupted #1 Vicryl suture subcutaneous tissue was closed with interrupted 2-0 Vicryl suture and skin with running 4-0 Monocryl. Sterile dressings applied and the tourniquet was released. All needle and sponge counts were correct at the end of the procedure patient was transferred to the PACU in stable condition without apparent complication. I attest to the content of the Intraoperative Record and any orders documented therein. Any exceptions are noted below. I attest to the content of the Intraoperative Record and any orders documented therein. Any exceptions are noted below.
[2017-04-29] MEDS ORDERED: MORP-157 PO (13:37)
[2017-04-29] MEDS ORDERED: ASPI81TA28 PO (13:37)
[2017-04-29] MEDS ORDERED: ONDA8TAB6 PO (13:37)
[2017-04-29] MEDS ORDERED: CLB200 PO (13:37)
[2017-04-29] MEDS ORDERED: ACET-1138 PO (13:37)
[2017-04-29] MEDS ORDERED: RXC5 PO (13:37)
--- NOTE | 2017-04-29 13:38 | Discharge Instructions ---
Discharge Instructions Date of Service Apr 29, 2017. Admission Reason for Admission: Left Knee Degenerative Arthritis Discharge Discharge Diagnosis / Problem: sp left TKA Discharge Goals Goal(s): Decrease discomfort, Improve function, Increase independence Activity Recommendations Activity Limitations: per Instructions/Follow-up section . Instructions / Follow-Up Instructions / Follow-Up ACTIVITY RECOMMENDATIONS: SELF CARE INSTRUCTIONS AFTER TOTAL KNEE REPLACEMENT A. You may need to continue a physical therapy program after discharge from the hospital. There are several options available to you. Your doctor will assist you in selecting the best one for you. 1. An out-patient facility 2 to 3 times a week for therapy or home therapy. 2. Continue working on all exercises taught to you in the hospital. Your goals should be to increase bending of your knee to 90 degrees and beyond and to fully straighten your knee. B. You may progress at your own pace from walking with a walker or crutches to a cane; then to no assistive devices. C. Make walking a part of your daily routine. Be up as much as comfortable with rest periods throughout the day. Rest with leg elevation is very important. Use the ice wrap frequently for the first 3-4 weeks. D. There are no restrictions on activities. You may ride in a car, shop, participate in admissions nurse and all social activities. E. Wear the long elastic stockings (MISTY hose) 20 hours a day for 2 weeks after surgery. They can be removed several times a day for laundering and for a bath. F. You may shower, no tub baths until cleared by your doctor. SPECIAL CARE INSTRUCTIONS: VERY IMPORTANT TO READ AND REVIEW A. There are a few signs you need to watch for after you are home. Call [facility] if you notice any of the followin. Increased severe knee pain. Some pain is expected especially when you exercise. 2. Increased swelling in your leg or knee; pain or swelling of the calf muscle in either lower leg. 3. Any fluid drainage from the incision. 4. Shortness of breath or chest pain. B. Please call [facility] at if you have any concerns or questions about your operation or recovery. The doctor or his nurse will return your call promptly. C. You must take antibiotics before dental work, bladder, bowel or other surgery. Your doctor will provide you with a permanent care to carry describing this precaution. IMPORTANT: * REMEMBER TO TAKE ASPIRIN, 81 MG, TWICE DAILY FOR 4 WEEKS UNLESS OTHERWISE DIRECTED. THIS IS YOUR BLOOD THINNER. * HIGH RISK PATIENTS MAY BE PRESCRIBED A STRONGER BLOOD THINNER. THIS WILL BE PROVIDED AT DISCHARGE. * CALL IF INCREASED PAIN, REDNESS, DRAINAGE OR FEVER GREATER THAT 101. * WEAR MISTY HOSE 20 HOURS PER DAY FOR 2 WEEKS. DERMABOND Prineo- This is a mesh tape dressing that is covered with glue. It should remain in place until the incision is properly healed, usually 10-14 days. This dressing is designed to naturally slough off. You may trim the excess mesh tape as it peels off. Incision may be briefly wet in a shower. Dry immediately by blotting with a clean, dry towel. Do not bath or swim until instructed by your doctor. Do not scratch, rub, or pick at the dressing. Do not apply any topical ointments or lotions until dressing is completely removed and/or instructed by your doctor. There may be a small piece of suture material at one end of your incision. Do not pull or trim this. If it is bothersome or catching on clothing, you may cover it with a band-aid. FOLLOW UP VISIT: If appointment is not already scheduled: Please call [facility] to make a follow-up appointment for 2 weeks after your surgery at . Current Hospital Diet Patient's current hospital diet: Regular Diet Discharge Diet Recommended Diet: Regular Diet Procedures Procedures Performed: Left total knee arthroplasty Pending Studies Studies pending at discharge: no Laboratory Results Hemoglobin A1c Test 04/24/17 00:00 Range/Units Estimated Average Glucose 114 mg/dl Hemoglobin A1c 5.6 4.5-5.6 % Medical Emergencies . Who to Call and When: Medical Emergencies: If at any time you feel your situation is an emergency, please call 911 immediately. . Non-Emergent Contact Non-Emergency issues call your: Surgeon . "Provider Documentation" section prepared by Saira Nagy. . VTE Core Measure Inpt VTE Proph given/why not?: Other Anticoagulation, T.E.D. Stockings, SCD's
[2017-04-29] MEDS: ACETAMINOPHEN 500 MG TAB PO SCH ×2 (14:28→21:59)
[2017-04-29] MEDS: OXYCODONE HCL IR 5 MG TAB (IMMEDIATE RELEASE) PO PRN ×2 (15:43→20:03)
[2017-04-29] MEDS: CEFAZOLIN IV 2,000 MG in DEXTROSE 5% 50ML 50 ML IV SCH (15:45)
[2017-04-29] MEDS: ASPIRIN 81 MG ECTAB PO SCH (21:57)
[2017-04-29] MEDS: CALCIUM 600MG + VIT D 400 IU TAB PO SCH (21:57)
[2017-04-29] MEDS: DOCUSATE SODIUM 100 MG CAP PO SCH (21:57)
[2017-04-29] MEDS: OXYCODONE HCL 10 MG TABCR (OXYCONTIN) PO SCH (21:58)
[2017-04-30] VITALS (7 sets, daily range): BP systolic 91–107; BP diastolic 58–69; PULSE 64–90; TEMP 36.3–36.5; O2SAT 97–98
[2017-04-30] MEDS: CEFAZOLIN IV 2,000 MG in DEXTROSE 5% 50ML 50 ML IV SCH (00:27)
[2017-04-30] MEDS: OXYCODONE HCL IR 5 MG TAB (IMMEDIATE RELEASE) PO PRN ×5 (00:28→21:38)
[2017-04-30 05:49] LABS: HEMATOCRIT 33.4 % (37-47); MEAN CELL VOLUME 91.8 fL (80-100); MEAN CORPUSCULAR HEMOGLOBIN 28.8 pg (25-34); MEAN CORPUSCULAR HGB CONC 31.4 g/dl (32-36); MEAN PLATELET VOLUME 10.5 fL (7.4-10.4); PLATELET COUNT 251 K/uL (130-400); RED BLOOD COUNT 3.64 M/uL (4.2-5.4); WHITE BLOOD COUNT 15.58 K/uL (4.8-10.8)
[2017-04-30] MEDS: ACETAMINOPHEN 500 MG TAB PO SCH ×3 (06:17→21:37)
[2017-04-30 06:22] LABS: BUN/CREATININE RATIO 17.8 (10-20); CALCIUM 8.6 mg/dl (8.5-10.1); CREATININE 0.93 mg/dl (0.60-1.20); POTASSIUM 4.4 mmol/L (3.5-5.1)
[2017-04-30] MEDS: D5W AND 1/2NSS + 20MEQ KCL 1,000 ML IV SCH (07:03)
[2017-04-30] MEDS ORDERED: DEXAMETHASONE 4 MG TAB PO SCH (07:30)
--- NOTE | 2017-04-30 07:48 | Orthopedic Progress Note ---
Orthopedic Progress Note Date of Service Apr 30, 2017. Subjective Post OP Day: 1 Reports: feeling well, Denies: chest pain, SOB, nausea / vomiting, light headedness, calf pain Objective calves soft nontender, N/V intact, dressing C/D/I, A&O x3, toes mobile, hemovac drainage (435/400cc per shift) Date Time Temp Pulse Resp B/P (MAP) Pulse Ox O2 Delivery O2 Flow Rate FiO2 04/30/17 07:05 Room Air 04/30/17 03:52 36.4 86 18 107/69 (82) 97 Room Air 04/30/17 00:00 Room Air 04/29/17 23:05 36.4 92 16 117/73 (88) 96 Room Air 04/29/17 21:55 96 116/55 (75) 04/29/17 19:30 Room Air 04/29/17 19:20 36.5 97 18 112/69 (83) 95 Room Air 04/29/17 15:45 36.5 88 18 90/62 (71) 96 Room Air 04/29/17 15:30 Room Air 04/29/17 14:00 85 16 109/69 (82) 96 Room Air 04/29/17 12:58 36.4 80 16 96/65 (75) 96 Room Air 04/29/17 12:00 80 16 122/72 (89) 92 Room Air 04/29/17 11:30 82 16 103/64 (77) 96 Room Air 04/29/17 11:00 Room Air 04/29/17 11:00 Room Air 04/29/17 11:00 73 16 95/41 97 Room Air 04/29/17 11:00 36.8 67 16 103/67 (79) 96 Room Air 04/29/17 10:50 77 19 98/56 98 Room Air 04/29/17 10:40 36.3 72 16 107/56 97 Room Air 04/29/17 10:30 75 22 107/56 98 Room Air 04/29/17 10:20 74 20 86/45 98 Room Air 04/29/17 10:10 70 16 109/54 95 Room Air 04/29/17 10:00 77 14 103/50 97 Room Air 04/29/17 09:50 83 22 94/69 97 Room Air 04/29/17 09:40 76 14 103/49 96 Room Air 04/29/17 09:30 80 19 97/43 100 Mask 10 04/29/17 09:21 36.0 74 16 106/52 98 Mask 10 Laboratory Results 24 Hours: Test 04/30/17 05:12 Hematocrit 33.4 % Hemoglobin 10.5 g/dL Assessment & Plan Assessment: POD#1 sp left TKA Plan: Patient seen and examined, agree with above Inhouse Planning Pain Management: Celebrex, Oxycontin, PO Tylenol, Oxy IR DVT Prophylaxis: TEDs, SCDs, ASA Discharge Planning Discharge Planning: home with oppt (HOLD ON DC TODAY DUE TO HEMOVAC DRAINAGE. PLAN ON DC TOMORROW)
[2017-04-30] MEDS: MULTIVITAMIN TAB PO SCH (08:31)
[2017-04-30] MEDS: ASPIRIN 81 MG ECTAB PO SCH ×2 (08:31→21:34)
[2017-04-30] MEDS: DOCUSATE SODIUM 100 MG CAP PO SCH ×2 (08:31→21:33)
[2017-04-30] MEDS: FERROUS GLUCONATE 324 MG TAB PO SCH ×3 (08:31→17:58)
[2017-04-30] MEDS: OXYCODONE HCL 10 MG TABCR (OXYCONTIN) PO SCH ×2 (08:31→21:34)
[2017-04-30] MEDS: PANTOprazole SOD 40 MG TAB PO SCH (08:31)
--- NOTE | 2017-04-30 08:53 | Anesthesiology Progress Note ---
Anesthesia Post Op Note Date & Time Apr 30, 2017 at 08:53 Vital Signs Pain Intensity: 4.0 Vital Signs Past 12 Hours Date Time Temp Pulse Resp B/P (MAP) Pulse Ox O2 Delivery O2 Flow Rate FiO2 04/30/17 08:34 76 97/69 (78) 04/30/17 08:25 98 Room Air 04/30/17 07:48 36.3 64 16 96/68 (77) 98 Room Air 04/30/17 07:05 Room Air 04/30/17 03:52 36.4 86 18 107/69 (82) 97 Room Air 04/30/17 00:00 Room Air 04/29/17 23:05 36.4 92 16 117/73 (88) 96 Room Air 04/29/17 21:55 96 116/55 (75) Notes Mental Status: alert / awake / arousable, participated in evaluation Pt Amnestic to Procedure: Yes Nausea / Vomiting: adequately controlled Pain: adequately controlled Airway Patency, RR, SpO2: stable & adequate BP & HR: stable & adequate Hydration State: stable & adequate Neuraxial Anesthesia: sensory block resolved Anesthetic Complications: no major complications apparent
[2017-04-30] MEDS: CALCIUM 600MG + VIT D 400 IU TAB PO SCH (21:32)
[2017-04-30] MEDS: CeleBREX 200 MG CAP PO SCH (21:33)
[2017-05-01] MEDS: OXYCODONE HCL IR 5 MG TAB (IMMEDIATE RELEASE) PO PRN ×2 (04:24→08:26)
[2017-05-01 05:57] VITALS: BP 97/63; PULSE 77; TEMP 36.6; O2SAT 97
[2017-05-01] MEDS: ACETAMINOPHEN 500 MG TAB PO SCH (06:05)
[2017-05-01] MEDS: ASPIRIN 81 MG ECTAB PO SCH (07:36)
[2017-05-01] MEDS: PANTOprazole SOD 40 MG TAB PO SCH (07:36)
[2017-05-01] MEDS: DOCUSATE SODIUM 100 MG CAP PO SCH (07:36)
[2017-05-01] MEDS: FERROUS GLUCONATE 324 MG TAB PO SCH (07:36)
[2017-05-01] MEDS: MULTIVITAMIN TAB PO SCH (07:36)
[2017-05-01] MEDS: CeleBREX 200 MG CAP PO SCH (07:36)
--- NOTE | 2017-05-01 07:53 | Discharge Summary ---
Orthopedic Discharge Summary Admission Date/Reason Apr 29, 2017 at 10:11 Left Knee Degenerative Arthritis. Discharge Date/Disposition Apr 30, 2017 Home Diagnosis Principal Diagnosis: DJD LEFT KNEE Procedure(s) Performed LEFT TOTAL KNEE ARTHROPLASTY WITH DR. NEELY Consultations NONE Medication Reconciliation New Medications: Morphine Cont Rel (Ms Contin) 15 Mg Tab 15 MG PO Q12, #20 TAB Ondansetron Hcl (Zofran) 8 Mg Tab 8 MG PO Q8 PRN for Nausea, #20 TAB Oxycodone HCl (Oxycodone HCl) 5 Mg Tab 5-10 MG PO Q4H PRN for Pain, #60 TAB Continued Medications: Acetaminophen (Tylenol Extra Strength) 500 Mg Tab 1000 MG PO Q8H for 30 Days, #180 TAB (This prescription has been renewed) Aspirin (Aspirin Ec) 81 Mg Tab 81 MG PO BID PRN for Pain for 30 Days (This prescription has been renewed) After 30 days, resume your once daily dosing. Atenolol (Tenormin) 50 Mg Tab 50 MG PO HS, TAB Biotin (Biotin) 1,000 Mcg Tab 2 TAB PO HS Calcium/Vitamin D (Os-Roderick 500 Plus D) Tab 2 TAB PO HS, TAB Celecoxib (Celebrex) 200 Mg Cap 200 MG PO BID, #60 CAP (This prescription has been renewed) Fish Oil ([place]-3) 1 Ea Cap 2 CAP PO HS, CAP Bllnvvwhqge-Lrtgxntnitj-Xzq C- (Glucosamine Chondroitin) 1 Tab Tab 1 TAB PO HS Admission Physical Exam As per Admitting History & Physical. Hospital Course PATIENT WAS ADMITTED ON THE ABOVE DAY FOR THE ABOVE PROCEDURE. POD#1 PATIENT WAS FEELING WELL WITHOUT COMPLAINTS. VITAL SIGNS WERE STABLE, SHE WAS AFEBRILE. DRESSING WAS C/D/I, NV INTACT, THIGH AND CALF WERE SOFT AND NON TENDER. PATIENT BEGAN PHYSICAL THERAPY PER PROTOCOL. HEMOVAC DRAINAGE WAS OVER 400 SO DISCHARGE WAS HELD. POD#2 PATIENT CONTINUED TO IMPROVE. VITALS WERE STABLE, AFEBRILE. INCISION WAS CLEAN, DRY AND INTACT, SHE WAS NV INTACT, THIGH AND CALF WERE SOFT AND NON TENDER. PATIENT WAS DISCHARGED TO HOME LATER THAT DAY IN STABLE CONDITION. SHE WAS PLANNING OUTPATIENT PHYSICAL THERAPY. Discharge Instructions Please refer to the electronic Patient Visit Report (Discharge Instructions) for additional information.
[2017-05-01 08:05] VITALS: BP 92/66; PULSE 64; TEMP 36.6; O2SAT 99
[2017-05-01] MEDS: OXYCODONE HCL 10 MG TABCR (OXYCONTIN) PO SCH (08:47)
[2017-05-01 08:53] VITALS: BP 92/66; PULSE 64; TEMP 36.6; O2SAT 99
[2017-05-01 09:10] VITALS: BP 97/57
== END 2017-05-01 09:50 | disposition home or self-care (01) | DRG 470 ==
LOC: C.ACU 05:18 → C.3E 10:11 → ENRESERV 10:41
PROVIDERS: ADMIT Orthopaedic Surgery; ATTEND Orthopaedic Surgery
PROC: 0SRD0J9 Replacement of Left Knee Joint with Synthetic Substitute, Cemented, Open Approach (ICD-10-PCS; principal; 2017-04-29 07:00)
DX: M17.12 Unilateral primary osteoarthritis, left knee (principal); Z68.41 Body mass index [BMI] 40.0-44.9, adult; M25.462 Effusion, left knee; M21.162 Varus deformity, not elsewhere classified, left knee; I10 Essential (primary) hypertension; E78.5 Hyperlipidemia, unspecified; G43.909 Migraine, unspecified, not intractable, without status migrainosus; E66.9 Obesity, unspecified; Z96.651 Presence of right artificial knee joint; Z79.1 Long term (current) use of non-steroidal anti-inflammatories (NSAID); Z79.82 Long term (current) use of aspirin; Z79.891 Long term (current) use of opiate analgesic; Z79.899 Other long term (current) drug therapy

== ENCOUNTER → 2017-05-24 | Outpatient (CLI) | payer OTHER ==
[~2017-05-24] MED LIST changes: +MORP-157 PO; -MORP15TA19 PO; -SNK PO
== END | disposition home or self-care (01) ==
LOC: C.PATHSPEC 17:04
PROVIDERS: ATTEND Orthopaedic Surgery
DX: R22.32 Localized swelling, mass and lump, left upper limb (principal)

== ENCOUNTER → 2017-10-15 | Outpatient (CLI) | payer OTHER ==
[~2017-10-15] MED LIST changes: +ONDA-170 PO; -ONDA8TAB6 PO
--- NOTE | 2017-10-16 13:40 | MAMMOGRAPHY REPORT ---
BILATERAL DIGITAL SCREENING MAMMOGRAM TOMOSYNTHESIS WITH CAD: 10/15/2017 CLINICAL HISTORY: Routine screening examination. TECHNIQUE: Breast tomosynthesis in addition to standard 2D mammography was performed. Current study was also evaluated with a Computer Aided Detection (CAD) system. COMPARISON: Comparison is made to exams dated: 06/21/2015 mammogram, 10/09/2013 mammogram, 07/10/2016 m ammogram, 09/03/2012 mammogram, 09/07/2011 mammogram, and 09/07/2010 mammogram - [facility]. BREAST COMPOSITION: There are scattered areas of fibroglandular density in both breasts. FINDINGS: A tiny grouping of punctate microcalcifications in the upper outer quadrant of the right br east is unchanged mammographic leading back to at least 09/07/2010, therefore likely benign. No new suspicious mass, architectural distortion or cluster of microcalcifications is seen. IMPRESSION: ACR BI-RADS CATEGORY 1: NEGATIVE There is no mammographic evidence of malignancy. A 1 year screening mammogram is recommended. The pa tient will receive written notification of the results. Approximately 10% of breast cancers are not detected with mammography. A negative mammographic report should not delay biopsy if a clinically suggestive mass is present. Susie Albert M.D. ay/:10/15/2017 15:40:01 [employer]ger: Beatrice DAILEY)(M), [facility] letter sent: Normal 1/2 BI-RADS Code: ACR BI-RADS Category 1: Negative
== END | disposition home or self-care (01) ==
LOC: C.MAMM 14:48
PROVIDERS: ATTEND Family Medicine
DX: Z12.31 Encounter for screening mammogram for malignant neoplasm of breast (principal)

== ENCOUNTER → 2017-11-08 | Outpatient (CLI) | payer OTHER ==
[~2017-11-08] MED LIST changes: -MORP-157 PO; -ONDA-170 PO
== END | disposition home or self-care (01) ==
LOC: C.PAPS 10:00
PROVIDERS: ATTEND Obstetrics & Gynecology
DX: Z12.4 Encounter for screening for malignant neoplasm of cervix (principal); Z11.51 Encounter for screening for human papillomavirus (HPV)

== ENCOUNTER 2020-02-02 05:39 | Observation (INO) ==
[2020-01-29 12:05] LABS: Basophils # (auto) 0.03 K/uL (0-0.2); Basophils % (auto) 0.4 %; Eosinophils # (auto) 0.14 K/uL (0-0.5); Hematocrit (blood only) 42.2 % (37-47); Hemoglobin 13.5 g/dL (12.0-16.0); Immature Granulocytes # (auto) 0.02 K/uL (0.00-0.02); Immature Granulocytes % (auto) 0.3 %; Lymphocytes # (auto) 1.66 K/uL (1.2-3.4); Lymphocytes % (auto) 23.6 %; Mean Corpuscular Hemoglobin 29.2 pg (25-34); Mean Corpuscular Volume 91.1 fL (80-100); Mean Platelet Volume 11.2 fL (7.4-10.4); Monocytes # (auto) 0.41 K/uL (0.11-0.59); Monocytes % (auto) 5.8 %; Neutrophils # (auto) 4.78 K/uL (1.4-6.5); Neutrophils % (auto) 67.9 %; Platelet Count 267 K/uL (130-400); RDW Coefficient of Variation 14.5 % (11.5-14.5); RDW Standard Deviation 48.7 fL (36.4-46.3); Red Blood Count 4.63 M/uL (4.2-5.4); White Blood Count 7.04 K/uL (4.8-10.8)
[2020-01-29 12:12] LABS: INR 1.1 (0.9-1.1); Partial Thromboplastin Ratio 1.1; Partial Thromboplastin Time 29.6 Seconds (21.0-31.0); Prothrombin Time 11.5 Seconds (9.0-12.0)
[2020-01-29 12:34] LABS: BUN Creatinine Ratio 18.8 (10-20); Blood Urea Nitrogen 18 mg/dl (7-18); C Reactive Protein < 0.29 mg/dl (0-0.29); Calcium 9.5 mg/dl (8.5-10.1); Carbon Dioxide 28 mmol/L (21-32); Chloride 107 mmol/L (98-107); Est GFR (African American) 75.1; Est GFR (Non-African American) 64.8; Glucose 107 mg/dl (70-99); Sodium 139 mmol/L (136-145)
--- NOTE | 2020-01-29 14:30 | Anesthesiology Consultation ---
Date of Service January 29, 2020 Assessment & Plan (1) Encounter for pre-operative examination: 2016 TKA = SAB and regional block both x 1 attempt, no complications noted in records. Chart Review Chart Review: Acceptable Risk for Surgery and Patient NOT seen in Pre Admission Testing History Surgery Operation Date: 02/02/20 07:00 Proposed Procedures p Left Total Knee Revision - Kieran Gee MD Height/Weight Height: 5 ft 5 in Weight: 108.862 kg Allergies Allergy/AdvReac Type Severity Reaction Status Date / Time No Known Allergies Allergy Mild Unverified 06/30/19 15:32 Medications Home Medications Medication Instructions Recorded Confirmed Last Taken acetaminophen 500 mg tablet 500 mg PO Q6H PRN 06/23/19 01/29/20 Unknown antiarthritic combination no.2 900 900 mg PO HS tab 06/23/19 01/29/20 Unknown mg tablet aspirin 81 mg chewable tablet 1 tab PO QAM tab 06/23/19 01/29/20 Unknown ibuprofen 200 mg tablet 200 mg PO Q6H PRN tab 06/23/19 01/29/20 Unknown naproxen sodium 220 mg tablet 220 mg PO BID PRN 06/23/19 01/29/20 Unknown omega-3 acid ethyl esters 1 gram 1 cap PO HS cap 06/23/19 01/29/20 Unknown capsule omeprazole 20 mg capsule,delayed 20 mg PO DAILY PRN 06/23/19 01/29/20 Unknown release atenolol 50 mg tablet 50 mg PO HS #90 tab 10/07/19 01/29/20 Unknown Past Medical History Medical History (Updated 01/29/20 @ 14:32 by Christopher Ag) DJD (degenerative joint disease) of knee Hyperlipidemia Hypertension Loosening of prosthesis of left total knee replacement Obesity Osteoarthritis of knee Painful total knee replacement, left Prediabetes Past Family History Family History Mother Diabetes Hypertension Hypercholesteremia Daughter Manning syndrome Father Prostate cancer Grandmother (Maternal) Diabetes Denies family history of Ovarian cancer Myocardial infarction Breast cancer Colorectal cancer Past Surgical History Surgical History Hx of hand surgery (05/2017) left hand fibroma removed Hx of oral surgery S/P dilation and curettage S/P tubal ligation Status post left knee replacement (04/2017) Status post total right knee replacement Social History Smoking Status: Never smoker Do You Dip or Chew Tobacco: No Hx Alcohol Use: Yes Alcohol type: wine alcohol intake frequency: holidays/special occasions only Hx Substance Use: No Testing Laboratory Results 01/29/20 WBC: 7.04 H/H: 13.5/42.2 PLATELETS: 267 SODIUM: 139 POTASSIUM: 4.0 CHLORIDE: 107 CO2: 28 BUN: 18 CREATININE: 0.97 GLUCOSE: 107 PT: 11.5 PTT: 29.6 INR: 1.1 TYPE AND SCREEN: A+, antibody - Electrocardiogram Date: 01/29/20 Findings: + NSR @ (72bpm) Low voltage QRS. Cannot r/o anterior infarct (cited on or before 02/19/17). No significant change from 02/19/17. *UNCONFIRMED Chest X-Ray Date: 01/29/20 Findings: + NAD Echocardiogram Date: 03/01/17 EF: 55-60% LV size, wall thickness and function are normal. No RWMA. Trace to mild TR.
--- NOTE | 2020-01-30 07:45 | History & Physical Report ---
Date of Service January 30, 2020 Assessment & Plan (1) Loosening of prosthesis of left total knee replacement: 55-year-old female 3 years out from cemented posterior by total knee arthroplasty with what appears to be aseptic loosening the tibial tray. She is tried to put the sauce but is significantly debilitated by her disease. The more she walks on it the more it hurts. She become incapacitated by this and have to use a cane. There is evidence of bone destruction due to the tibial tr ay being loosened his pain is progressed over the past 2 weeks. She tried to put this off. We could consider put in a soft for a several week she had but with a Naima 19 situation is unclear when working to be able to operate without restriction. In light of this and the risks I think it is best to proceed for several reasons. 1. She has had tibial loosening and there is been bone destruction medially and it is tipped into varus. Further weightbearing on this up for several weeks could cause further bone destruction and even fracture and make her reconstruction significantly more difficult and her outcome is significantly worse especially in this young patient. 2. Her pain and discomfort is become debilitating she is having difficulty doing her job and even caring for her family. In light of this I do not think this can wait any longer and would be considered essential for her to assist in and continue to care for her family as well as support her family with her occupation. We are going to proceed with revision of the tibial tray. If there is further problems with loosening we will revise the entire implant. All risks and benefits were explained and she desires to proceed. (2) Painful total knee replacement, left: History of Present Illness Chief Complaint: Persistent left knee pain discomfort and instability. Primary Care Provider: Cris Malhtora DO Patient is a 55-year-old [employer] who is now about 3 years out from a bilateral knee replacements done about a 5 to 6 weeks apart. The left knee was done April [id number] by Dr. Earl above. She did pretty well for the first year. About 1 year postoperatively as she started developing increased pain discomfort in her left knee. She is bistro and try to manage this over time and is gradually gotten worse. Her pain and discomfort is in instability is gotten the point where it incapacitating. She has difficulty walking at all. She is been using a cane to get around. Pain is mostly in the [place] area. It hurts her all the time but increased with weightbearing. She is having great difficulty doing her job and even take care of her and her family. She had an extensive work-up which is ruled out infection. X-rays as well as bone scan revealed loosening the tibial tray. There is been some interval bone destruction. She now elected proceed with surgical treatment. She is been trying to put this off present does not feel like she can no longer do this as she is very incapacitated and having difficulty even a mobilizing and getting around and walking and great difficulty performing her job. It is gotten significantly worse over the past several months. Allergies Allergy/AdvReac Type Severity Reaction Status Date / Time No Known Allergies Allergy Mild Unverified 06/30/19 15:32 Home Medications Home Medications Medication Instructions Recorded Confirmed Type acetaminophen 500 mg tablet 500 mg PO Q6H PRN 06/23/19 01/29/20 History antiarthritic combination no.2 900 900 mg PO HS tab 06/23/19 01/29/20 History mg tablet aspirin 81 mg chewable tablet 1 tab PO QAM tab 06/23/19 01/29/20 History ibuprofen 200 mg tablet 200 mg PO Q6H PRN tab 06/23/19 01/29/20 History naproxen sodium 220 mg tablet 220 mg PO BID PRN 06/23/19 01/29/20 History omega-3 acid ethyl esters 1 gram 1 cap PO HS cap 06/23/19 01/29/20 History capsule omeprazole 20 mg capsule,delayed 20 mg PO DAILY PRN 06/23/19 01/29/20 History release atenolol 50 mg tablet 50 mg PO HS #90 tab 10/07/19 01/29/20 Rx Past Med/Surg History Medical History DJD (degenerative joint disease) of knee Hyperlipidemia Hypertension Loosening of prosthesis of left total knee replacement Obesity Osteoarthritis of knee Painful total knee replacement, left Prediabetes Surgical History Hx of hand surgery (05/2017) left hand fibroma removed Hx of oral surgery S/P dilation and curettage S/P tubal ligation Status post left knee replacement (04/2017) Status post total right knee replacement Family History Mother Diabetes Hypertension Hypercholesteremia Daughter Manning syndrome Father Prostate cancer Grandmother (Maternal) Diabetes Denies family history of Ovarian cancer Myocardial infarction Breast cancer Colorectal cancer Social History Preferred Language: Lao Communication Ability: Effective Visual Impairment: No Limitations Hearing Ability: Normal Diamond Grader Required: No Beliefs That Will Affect Care: None marital status: Current Living Situation: Spouse current occupational status: employed 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[employer]) Feels Safe at Home: Yes Smoking Status: Never smoker Second Hand Exposure: No ; Hx Alcohol Use: Yes Alcohol type: wine Alcohol Intake Frequency: Rarely Hx Substance Use: No Dental Care, Regularly: Yes Physical Activity Frequency: Does not Exercise Seatbelt Use: always Sunscreen Use: Yes Review of Systems Review of Systems: All systems reviewed & are unremarkable except as noted in HPI & below Physical Exam Constitutional: WD/WN, vitals as above Eyes: PERRL, conjunctivae normal, anicteric sclerae ENMT: external ear and nose normal, oropharynx normal Neck: trachea midline, no thyromegaly Respiratory: normal respiratory effort, lungs clear to auscultation Cardiovascular: RRR, no murmur, no edema Gastrointestinal (Abdomen): normal bowel sounds, soft, nontender, no hepatosplenomegaly Musculoskeletal: no cyanosis or clubbing, extremities motor strength 5/5 Skin: no rashes, warm and dry Neurologic: patellar DTR's 2+ bilat, sensation intact Examination of the left knee reveals the patient walks with a markedly antalgic gait. She comes in using a cane today. She limps significantly on this left leg and has difficulty putting any weight on it. It does seem to have a buildup of bone to it when she weight bears. She is a well-healed incision. There is no warmth. The skin is intact. She is a moderate-sized joint effusion. She does have some laxity to varus valgus stress testing. She can do a straight leg raise. Her range of motion is 0 at about 100 degrees. There is no pain with hip motion. She is neurologically intact. Results & Data Results & Data ([facility]) Laboratory Results Her sed rate and C-reactive protein from previous visit were normal. Diagnostic Findings X-rays of the left knee reveal cemented posterior by his total knee arthroplasty. There is obvious loosening the tibial tray with debonding of the cement from the implant. Her implants tipped into varus. There is been some bone destruction medially and are traced up into varus. The femoral component appears to be well fixed and the patella looks to be fixed acceptably and tracking in the trochlear groove. PG Care Time/CCT Total # of Minutes Spent Total Time Spent with Patient: Total time spent is greater than 50% in coordination of care (as documented) at patient's floor/unit and/or counseling patient: Coding Level of Care Code 66796 Initial Inpt Care Lvl 3 Diagnoses Loosening of prosthesis of left total knee replacement T84.033A Painful total knee replacement, left T84.84XA; Z96.652
[2020-02-02] MEDS ORDERED: SCOPOLAMINE 1.5 MG TDSY TD SCH (06:00)
[2020-02-02] MEDS ORDERED: METOCLOPRAMIDE HCL 10 MG TABLET PO SCH (06:00)
[2020-02-02] MEDS ORDERED: TRANEXAMIC ACID 1,000 MG **IV Intra-op IV SCH (06:00)
[2020-02-02] MEDS ORDERED: CEFAZOLIN 2000MG 2,000 MG/15 ML SYR IV SCH (06:00)
[2020-02-02] MEDS ORDERED: LR 500ML BOLUS, THEN 15ML/HR IV SCH (06:00)
[2020-02-02] MEDS ORDERED: GABAPENTIN 600 MG DOSE PO SCH (06:00)
[2020-02-02] MEDS ORDERED: BUPIVACAINE LIPOSOME/PF 266 MG, BUPIVACAINE/EPINEPHRINE 50 ML, SODIUM CHLORIDE 0.9% 30 ... INFIL SCH (06:00)
[2020-02-02] MEDS ORDERED: ACETAMINOPHEN 500 MG TAB PO SCH (06:00)
[2020-02-02] MEDS ORDERED: FAMOTIDINE 20 MG TAB PO SCH (06:00)
[2020-02-02] MEDS ORDERED: BUPIVACAINE 0.5 % 5 MG/1 ML PF 10ML VIAL ONE (06:15)
[2020-02-02] MEDS ORDERED: SODIUM CHLORIDE 0.9% PF 50 ML VIAL ONE (06:33)
[2020-02-02] MEDS ORDERED: BACITRACIN INJ 50,000 UNIT VIAL ONE ×3 (06:33→09:50)
[2020-02-02] MEDS ORDERED: BUPIVACAINE LIPOSOME 1.3% 266 MG/20 ML VIAL ONE (06:33)
[2020-02-02] MEDS ORDERED: BUPIVACAINE/EPINEPHRINE 0.25% 1:200,000 30 ML VIAL ONE (06:33)
[2020-02-02] MEDS ORDERED: ROPIVACAINE 0.5% 5 MG/ML 30 ML VIAL ONE (06:34)
[2020-02-02] MEDS ORDERED: MIDAZOLAM HCL 1 MG/ML 2ML VIAL ONE ×3 (06:36→09:47)
[2020-02-02] MEDS ORDERED: fentaNYL citrate 100 MCG/2 ML VIAL ONE ×2 (06:36→10:12)
[2020-02-02] MEDS ORDERED: ATROPINE SULFATE 0.1 MG/ML 10ML SYR IV PRN (06:42)
[2020-02-02] MEDS ORDERED: ePHEDrine sulfate 50 MG/ML AMP IV PRN (06:42)
[2020-02-02] MEDS ORDERED: ONDANSETRON INJ 2 MG/ML 2 ML VIAL IV PRN (06:42)
[2020-02-02] MEDS ORDERED: fentaNYL citrate 100 MCG/2 ML VIAL IV PRN (06:42)
[2020-02-02] MEDS ORDERED: ACETAMINOPHEN 500 MG TAB ONE (06:51)
[2020-02-02] MEDS ORDERED: FAMOTIDINE 20 MG TAB ONE (06:51)
[2020-02-02] MEDS ORDERED: GABAPENTIN 300 MG CAP ONE (06:52)
[2020-02-02] MEDS ORDERED: METOCLOPRAMIDE HCL 10 MG TABLET ONE (06:53)
[2020-02-02] MEDS ORDERED: SCOPOLAMINE 1.5 MG TDSY ONE (06:54)
--- NOTE | 2020-02-02 06:54 | History & Physical Bridge Note ---
Date of Service February 02, 2020 History & Physical Bridge Note I have examined the patient, reviewed the History & Physical and in the interval since the performance of the History & Physical I have noted the following changes of clinical significance: no changes noted
[2020-02-02] MEDS ORDERED: TRANEXAMIC ACID / 0.7% NACL 1000MG/100ML BAG IV ONE (06:55)
[2020-02-02] MEDS: CEFAZOLIN 2,000 MG/15 ML IV PUSH IV ONE ×2 (07:22→08:31)
[2020-02-02] MEDS ORDERED: LIDOCAINE HCL 2% 2 ML VIAL/AMP(20MG/ML) INFIL ONE (07:29)
[2020-02-02] MEDS ORDERED: PROPOFOL IV EMULSION 10 MG/ML 20 ML VIAL IV ONE ×4 (07:29→09:26)
[2020-02-02] MEDS ORDERED: ONDANSETRON INJ 2 MG/ML 2 ML VIAL ONE ×2 (07:51→09:10)
[2020-02-02] MEDS ORDERED: VANCOMYCIN HCL 1000MG/20ML VIAL ONE (08:43)
[2020-02-02] MEDS ORDERED: TOBRAMYCIN SULFATE 1,200 MG VIAL ONE (08:52)
[2020-02-02] MEDS: VANCOMYCIN HCL 1000MG/20ML VIAL ONE ×2 (09:54→10:19)
[2020-02-02] MEDS ORDERED: LABETALOL HCL IV 5 MG/ML 20ML IV ONE (10:25)
[2020-02-02] MEDS ORDERED: VANCOMYCIN CONSULT ACTIVE PRN ×2 (10:38→12:11)
[2020-02-02] MEDS ORDERED: SODIUM CHLORIDE 0.9% IV STA (10:38)
[2020-02-02] MEDS ORDERED: VANCOMYCIN HCL IV STA (10:38)
--- NOTE | 2020-02-02 10:56 | Post Operative Brief Note ---
PG Immediate Post Op with CF Date of Surgery February 02, 2020 Pre & Post Diagnosis Operation Date: 02/02/20 07:00 Pre-Op Diagnosis: Aseptic Loosening Total Knee Replacement Left Post-Op Diagnosis: Septic Loosening Total Knee Replacement Left I identified the patient and participated in the time-out.: Yes Procedure Operation Date: 02/02/20 07:00 Actual Procedures p Removal of Left Total Knee with Placement of Antibiotic Spacer(Left) - Kieran Gee MD Surgeon Kieran Gee MD Gyroscopic Instrument Tester Tate, [facility] Estimated Blood Loss 100 Findings Consistent with Post-Op Diagnosis Fluids 1300 cc Specimens Specimen Description: Microbiology #1- Left knee synovial fluid culture Microbiology #2- Left knee tissue culture Microbiology #3- Left knee tibial canal culture Microbiology #4- Left knee femoral canal culture Frozen #1- Left knee synovium Frozen #2- Left knee tibial canal Drains Ramirez Catheter Anesthesia Type Spinal MAC Complications none Disposition Accompanied Patient To Recovery: Yes Disposition: Recovery Room
--- NOTE | 2020-02-02 11:26 | XRay Report ---
TWO VIEWS LEFT KNEE CLINICAL HISTORY: Postoperative examination. FINDINGS: AP and crosstable lateral portable views of the left knee are obtained. The femoral compone nt of a left knee arthroplasty is unchanged in alignment. The tibial component has been removed and a n antibiotic spacer has been placed. There has been undersurface remodeling of the patella. No acute fracture is seen. There are expected postoperative changes around the knee including soft tissue lori a and subcutaneous gas. IMPRESSION: Expected postoperative changes status post left knee arthroplasty revision with removal o f the tibial component and antibiotic spacer placement. No acute fracture is seen. ACT 112: Negative or not required by law. Electronically signed by: Gerald Capone M.D. 02/02/2020 11:25 AM
--- NOTE | 2020-02-02 11:35 | Anesthesiology Progress Note ---
Date of Service February 02, 2020 Anesthesia Post Procedure Vital Signs Vital Signs: Temp Pulse Pulse Resp BP Pulse Ox 02/02/20 11:25 97.2 F L 63 14 112/66 99 02/02/20 11:15 73 15 102/67 99 02/02/20 11:05 53 L 14 89/53 L 100 02/02/20 10:59 97.2 F L 60 14 89/55 L 99 02/02/20 06:07 97.7 F 77 20 112/58 L 96 Pain Intensity Left Knee: Pain Intensity: 6 Transfer of Care Handoff Completed per policy Notes Mental Status: alert / awake / arousable and participated in evaluation Patient Amnestic to Procedure: Yes Nausea / Vomiting: adequately controlled Pain: adequately controlled Airway Patency, RR, SpO2: stable & adequate BP & HR: stable & adequate Hydration State: stable & adequate Neuraxial Anesthesia: was administered and sensory block is resolving Anesthetic Complications: no major complications apparent and Pt Satisfied with anesthetic care
--- NOTE | 2020-02-02 12:10 | Operative Report ---
Post Operative Report Pre & Post Diagnosis Operation Date: 02/02/20 07:00 Pre-Op Diagnosis: Aseptic loosening Total Knee Replacement Left Post-Op Diagnosis: Septic loosening Total Knee Replacement Left I identified the patient and participated in the time-out.: Yes Procedure Operation Date: 02/02/20 07:00 Actual Procedures p Removal of Left Total Knee with Placement of articulating antibiotic Spacer(Left) - Kieran Gee MD Surgeon Kieran Gee MD Credit Analyst Tate, PAC Estimated Blood Loss 100 Findings Consistent with Post-Op Diagnosis Operative findings revealed inflammatory fluid. The tibial component was grossly loose. The femoral and patellar components were not grossly loose. Fairly mild synovitis. Moderate bone destruction of the proximal tibia. Fluids 1300 cc. Specimens There were 4 specimen sent off for Gram stain and culture and to the specimen sent off for frozen section and pathology. The fourth specimen sent off for fluid analysis and Gram stain and culture were: 1. Left knee synovial fluid which revealed many WBCs and no organisms seen. 2. Left knee tissue sent for tissue culture revealed rare polys and many mono nucleated cells. No organisms. 3. Left tibial canal culture revealed rare WBCs and no organisms. 4. Left femoral canal revealed few WBCs and no organisms Frozen section was sent on 2 specimens: 1. Knee joint synovium revealed areas of acute and chronic inflammation with anywhere from 0-20 polys per high-power field with the average count greater than 5 per high-power field. 2. Soft tissue from the IM canal was sent for frozen section revealed acute and chronic inflammation with 0-80 polys per high-power field with the average 50 polys per high-power field.. Drains None. Anesthesia Type Spinal MAC Complications none Disposition Disposition: Recovery Room Indications Patient is a 55-year-old very active [employer] who is now about 2 and half years out from a left cemented posterior by his total knee arthroplasty done by another surgeon. She did well for the first year but then developed the insidious onset of pain discomfort and swelling her knee. She had extensive work-up which revealed tibial loosening. Did not appear there was any infection. She did say that she had this aspirated once but I cannot find the results of that. She had a sed rate and C-reactive protein about a year ago which was normal. We also did an infectious work-up in the past which was normal for normal sed rate and C-reactive protein. She did have some labs done recently which showed a normal C-reactive protein but just slightly elevated sed rate. She did have apparent tibial loosening which appeared to be aseptic. Patient elected proceed with surgical revision. There was a very low clinical suspicion for infection on exam and her work-up. Description of Procedure Operative implants consisted of: 1. [employer]ir[employer] size 4 posterior stabilized journey femoral component. 2. 11 mm Po stabilized polyethylene insert. The patient was taken to the operating room identified and placed on the operating table supine position protectors were properly padded. IV antibiotics were provided by anesthesia team. A spinal anesthetic and abductor canal block had provided in the holding area. Ramirez catheter was placed in sterile fashion to the left thigh turn was then placed in the left lower extremities and prepped draped in usual sterile fashion. The left leg was elevated and exsanguinated with use of an Esmarch and turns placed at 350 mmHg. An anterior posterior left knee was then performed to a longitudinal incision using the previous incision and extending it slightly proximally and distally. Sharp dissection was gone through subcutaneous tissue down below the extensor mechanism. A medial parapatellar arthrotomy incision was made. Upon entering the joint there was an inflammatory fluid. We did send this off for stat Gram stain aerobic anaerobic culture with results as described above. Some subperiosteal dissection was carried out medially. The fat pad and scar tissue underneath the patella tendon was resected. Complete synovectomy of the suprapatellar pouch medial lateral gutters were performed. The synovium was sent for both culture and frozen section with the results as described above. This is highly suspicious for infection. Subperiosteal dissection was carried out medially. I examined the knee. The tibia was grossly loose. Femoral component patella component appeared well fixed. We proceeded with revising the tibia. The polyethylene was removed. The tibial tray was removed without difficulty. There was quite a bit of soft tissue adherent to the adjacent bone. I then removed some of the synovium around the tibial tray and sent this for frozen section as well as culture with the findings as scribed above. Upon finding the frozen section it clearly. This was infected and we elected to proceed with resection arthroplasty. I did prepared the tibia for the tibial component before the frozen section was back. We reamed up to a size 12 and then cut the proximal tibia to remove about a 1 mm section from most efficient aspect the medial tibial plateau. We sized the tibia to a size 1. We did prepared the tibia for a 6 mm offset but could not quite get the metaphyseal segment down likely due to impinging on the cortex. At this point we did get the frozen section results back and I felt we had to proceed with resection arthroplasty and placement of the antibiotic spacer due to the signs of infection. I irrigated this extensively. We then elected to proceed with removal of the femoral component. With use of a saw the interface between the femoral component and the femur was developed and then removed with the use of a stacked osteotome technique. I then saucerized the scar tissue around the patella and remove this without difficulty and then remove the plastic drill hole lugs with a drill bit. I then took quite a bit of time removing all the cement from the distal femur and. We did to place the IM guide and reamed the IM canal of the femur up to 14 to get rid of all knee soft tissue and infectious debris. I then did cut the distal femur just to remove just the surface at a 5 degree angle. I sized the femur to a size 4. The tibia was sized to a size 1. We irrigated the wound extensively. We then redraped over the knee and changed our gloves. I then went to preparing the antibiotic spacer. We created some dowels to place in the femur and the tibia. The tibial dowel length was 9.5 cm and the femoral dowel length was 12.5 cm. We used a single batch of Palacos G cement with 3 g of vancomycin and 3.6 g of tobramycin. We then used a size 4 Po stabilized femoral component as well as an 11 mm size 1 polyethylene insert for the antibiotic spacer. I mixed a double batch of Palacos G cement with 6 g of vancomycin and 6 7.2 g of tobramycin. The tourniquet was let down before we cemented and hemostasis was assured. The tourniquet time was 160 minutes. I then very loosely cemented the implants to the distal femur as well as the proximal tibia. We held the knee out in extension total cement hardened. I could then easily take the knee through range of motion from 0 to 90 degrees. There was some slight laxity but not gross laxity. I injected locally with 100 cc of combination of 20 cc of Exparel, 30 cc of normal saline, 50 cc of quarter percent Marcaine with epinephrine. I irrigated the wound extensively. We irrigated in total with 9 L of pulsatile lavage solution. We then changed our gloves again. Attention drawn toward closing. The extensor mechanism then closed with #1 PDS suture in a running fashion. The extensor mechanism checked. It was nicely intact and the patella tracked nicely. The subcutaneous tissue was then closed with 2 Dexon suture in a buried interrupted fashion the skin was then closed with 3-0 nylon suture in a simple fashion. Leg was then cleaned and dried a sterile dressing composed Xeroform, 4 x 4's, sterile cast padding, Gregg bandage, knee immobilizer applied. Patient then transferred to the recovery room in stable condition. The patient tolerated procedure well and there were no complications. In reference for future surgery, the tibia was prepared and reamed to a size 12. The tibia sized to a size 1 with a 6 mm offset. We could not get the more reamer the whole way down and is likely she will need some augments or assured her stem in her revision to get these components in appropriate place. The femur was reamed to a size 14 but could be reamed further for interference fit and sized nicely to a size 4 femoral component. We did leave some additional cement around the implants in order to maximize the antibiotic delivery. She was given vancomycin IV after all implants were removed and all cultures were obtained. We gave her 1.65 g of IV vancomycin intraoperatively. I attest to the content of the Intraoperative Record and any orders documented therein. Any exceptions are noted below.
[2020-02-02] MEDS ORDERED: ALUMINUM/MAGNESIUM SUSP 30 ML UDC PO PRN (12:11)
[2020-02-02] MEDS ORDERED: NALOXONE HCL 0.4 MG/1 ML VIAL/CARP IV PRN (12:11)
[2020-02-02] MEDS ORDERED: MAGNESIUM HYDROXIDE SUSP 30 ML UDC PO PRN (12:11)
[2020-02-02] MEDS ORDERED: METOCLOPRAMIDE HCL INJ 5 MG/ML 2 ML VIAL IV PRN (12:11)
[2020-02-02] MEDS ORDERED: bisacodyL 10 MG SUPP PR PRN (12:11)
[2020-02-02] MEDS ORDERED: PANTOprazole 40 MG TAB PO PRN (12:16)
--- NOTE | 2020-02-02 13:16 | Pharmacy Report ---
Pharmacy Abx Initial Consult - Date of Service February 02, 2020 - Pharmacy Dosing Scope Date of Consult: 02/02/20 Consultation requested by: Dr. Gee Pharmacy is consulted to initiate vancomycin IV dosing therapy, order appropriate labs and adjust drug dose/frequency. - Subjective The patient is a 55 year old F admitted on 02/02/20 11:04. - Objective Height: 5 ft 5 in Weight: 110.7 kg Vital Signs (Past 12hrs): Vital Signs Temp Pulse Pulse Pulse Resp BP BP 02/02/20 12:56 54 L 18 113/70 02/02/20 12:23 61 18 96/63 L 02/02/20 11:50 36.3 C L 59 L 18 106/65 02/02/20 11:25 36.2 C L 63 14 112/66 02/02/20 11:15 73 15 102/67 02/02/20 11:05 53 L 14 89/53 L 02/02/20 10:59 36.2 C L 60 14 89/55 L 02/02/20 06:07 36.5 C 77 20 112/58 L Pulse Ox 02/02/20 12:56 100 02/02/20 12:23 99 02/02/20 11:50 98 02/02/20 11:25 99 02/02/20 11:15 99 02/02/20 11:05 100 02/02/20 10:59 99 02/02/20 06:07 96 Lab Results (24hrs): Laboratory Tests (24 Hours) 01/29/20 01/29/20 01/29/20 10:53 10:53 10:53 WBC 7.04 Neut # (Auto) 4.78 ESR 35 H Creatinine 0.97 C-Reactive Protein < 0.29 Micro Results: 02/02/20 09:05 Gram Stain - Final Knee,Left Aerobic and Anaerobic Culture - Pending 02/02/20 07:53 Gram Stain - Final Knee,Left Aerobic and Anaerobic Culture - Pending 02/02/20 08:16 Gram Stain - Final Knee,Left Aerobic and Anaerobic Culture - Pending 02/02/20 08:03 Gram Stain - Final Knee Aerobic and Anaerobic Culture - Pending - Assessment & Plan Assessment 55 year old F admitted s/p removal of L total knee with placement of antibiotic spacer. She has a history of b/l TKA in 2017. Has had reduced mobility and increased pain that has worsened to the point of requiring surgery. Intra-operatively, patient received 1650 mg (15 mg/kg) of IV vancomycin ~ 1100. Additional vancomycin was also mixed with the cement for the antibiotic spacer. 4 different L knee specimens have been sent for gram stain and culture Patient to be continued on vancomycin postoperatively for possible bone and joint infection. Rifampin has also been ordered. Plan Vancomycin IV * Estimated PK Parameters: Vd 0.55 L/kg, Butch 0.069 hr-1, t1/2 10 hours * Using SCr from 01/28 of 0.97, est CrCl 79 mL/min * Loading dose: 1650 mg (15 mg/kg) - given at 1100 * Maintenance dose: 1750 mg IV (15.9 mg/kg) every 18 hours - will start this at 2000, when level expected to be ~17 * Surgeon would like to aim for q24h dosing in the event patient requires prolonged vancomycin in the outpatient setting. Current t1/2 may prohibit this but will increase dose and trial q18h hours initially to see if q24h dosing is an option. * Goal trough level for bone/joint infection : 15 to 20 mcg/mL * Trough level ordered for 02/03/20 prior to the 3rd dose * Note: this is PRIOR to steady state but want to assess early in the setting of elevated BMI and extended interval trialed * Dose will likely need adjusted if level outside of 10-15 mcg/mL range Pharmacy will continue to follow and will adjust dose/frequency as necessary. Thank you.
[2020-02-02] MEDS: KETOROLAC 30 MG/ML VIAL IV SCH ×2 (13:33→20:06)
[2020-02-02] MEDS: SODIUM CHLORIDE 0.9% 1000ML 1,000 ML IV SCH (13:33)
[2020-02-02] MEDS: ACETAMINOPHEN 500 MG TAB PO SCH ×2 (13:33→21:13)
[2020-02-02] MEDS: HYDROmorphone INJ 0.5 MG/0.5 ML SYR IV PRN (14:15)
[2020-02-02] MEDS: CHECK SCOPOLAMINE PATCH PLACEMENT SCH ×2 (15:42→23:30)
[2020-02-02] MEDS: OXYCODONE HCL IR 5 MG TAB (IMMEDIATE RELEASE) PO PRN ×2 (16:50→22:49)
[2020-02-02] MEDS: ONDANSETRON INJ 2 MG/ML 2 ML VIAL IV PRN ×2 (16:50→22:41)
[2020-02-02] MEDS: ASCORBIC ACID 500 MG TAB PO SCH (16:50)
[2020-02-02] MEDS: FERROUS GLUCONATE 324 MG TAB PO SCH (16:50)
[2020-02-02] MEDS ORDERED: TRANEXAMIC ACID / 0.7% NACL 1,000 MG/100 ML BAG IV SCH (17:01)
[2020-02-02] MEDS: VANCOMYCIN HCL 1,750 MG in SODIUM CHLORIDE 0.9% 500 ML IV SCH (20:19)
[2020-02-02] MEDS: DOCUSATE SODIUM 100 MG CAP PO SCH (21:06)
[2020-02-02] MEDS: ASPIRIN 81 MG ECTAB PO SCH (21:06)
[2020-02-02] MEDS: OMEGA-3 (PURIFIED FISH OIL) 1 GM CAP PO SCH (21:07)
[2020-02-02] MEDS: TAPENTADOL HCL ER 50 MG TABCR PO SCH (21:07)
[2020-02-02] MEDS: rifAMPin 300 MG CAPSULE PO SCH (21:08)
[2020-02-02] MEDS: SENNA 8.6 MG TAB PO SCH (21:08)
[2020-02-02] MEDS: ATENOLOL 50 MG TABLET PO SCH (21:12)
[2020-02-03] MEDS: SODIUM CHLORIDE 0.9% 1000ML 1,000 ML IV SCH (01:12)
[2020-02-03] MEDS: KETOROLAC 30 MG/ML VIAL IV SCH ×4 (02:15→21:00)
[2020-02-03] MEDS: OXYCODONE HCL IR 5 MG TAB (IMMEDIATE RELEASE) PO PRN ×4 (05:36→23:34)
[2020-02-03] MEDS: ACETAMINOPHEN 500 MG TAB PO SCH ×3 (05:36→22:04)
[2020-02-03 07:08] LABS: Hematocrit (blood only) 32.6 % (37-47); Hemoglobin 10.3 g/dL (12.0-16.0); Mean Corpuscular Hemoglobin 28.9 pg (25-34); Mean Corpuscular Hgb Conc 31.6 g/dL (32-36); Mean Corpuscular Volume 91.3 fL (80-100); Mean Platelet Volume 11.3 fL (7.4-10.4); Platelet Count 194 K/uL (130-400); RDW Coefficient of Variation 14.3 % (11.5-14.5); RDW Standard Deviation 48.2 fL (36.4-46.3); Red Blood Count 3.57 M/uL (4.2-5.4); White Blood Count 5.71 K/uL (4.8-10.8)
[2020-02-03 07:40] LABS: Calcium 8.3 mg/dl (8.5-10.1); Creatinine Clr Calc Pharmacy 64.6 ml/min; Est GFR (African American) 58.7; Est GFR (Non-African American) 50.6; Potassium 4.1 mmol/L (3.5-5.1)
--- NOTE | 2020-02-03 07:55 | Anesthesiology Progress Note ---
Date of Service February 03, 2020 Anesthesia Post Procedure Vital Signs Vital Signs: Temp Pulse Pulse Resp BP BP Pulse Ox 02/03/20 07:15 36.5 C 60 14 103/66 96 02/03/20 03:35 36.5 C 62 15 94/60 L 97 02/02/20 23:10 36.5 C 60 14 92/55 L 98 02/02/20 21:11 75 16 107/68 100 02/02/20 19:06 36.6 C 68 17 111/58 L 100 02/02/20 15:38 36.3 C L 67 14 106/65 100 02/02/20 14:18 62 18 106/60 97 02/02/20 12:56 54 L 18 113/70 100 02/02/20 12:23 61 18 96/63 L 99 02/02/20 11:50 36.3 C L 59 L 18 106/65 98 02/02/20 11:25 36.2 C L 63 14 112/66 99 02/02/20 11:15 73 15 102/67 99 02/02/20 11:05 53 L 14 89/53 L 100 02/02/20 10:59 36.2 C L 60 14 89/55 L 99 Pain Intensity Left Knee: Pain Intensity: 6 Notes Mental Status: alert / awake / arousable and participated in evaluation Patient Amnestic to Procedure: Yes Nausea / Vomiting: adequately controlled Pain: adequately controlled Airway Patency, RR, SpO2: stable & adequate BP & HR: stable & adequate Hydration State: stable & adequate Neuraxial Anesthesia: was administered and sensory block resolved Anesthetic Complications: no major complications apparent and Pt Satisfied with anesthetic care
--- NOTE | 2020-02-03 08:22 | Progress Notes ---
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 She is doing pretty well this morning. Pain is reasonably well controlled. She says it is better than what it was before surgery. No chest pain or shortness of breath. Not feeling dizzy or lightheaded. OBJECTIVE: VITAL SIGNS: Temperature 36.5. Vital signs stable. GENERAL: Shows a pleasant, middle-aged female. She is sitting up in her bedside chair, looks quite comfortable. EXTREMITIES: Examination of the left leg reveals the leg to be well aligned. Dressing is clean, dry and intact. She can do a straight leg raise with some assistance. She can dorsiflex and plantarflex her foot appropriately. She is neurologically intact. LABORATORY DATA: Hemoglobin is 10.3, hematocrit 32.6. Electrolytes are stable. Culture results are no growth to date; these are pending. Gram stains have all been negative for organisms. 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 Clinically, her knee was infected with purulent fluid and high level of polys per high power field on frozen section. It is certainly possible her cultures may not grow anything. We are going to have to treat her empirically at least covering for methicillin-resistant Staphylococcus if it does not grow anything. PLAN: 1. DVT prophylaxis including thigh-high TEDs, SCDs, and aspirin twice a day. 2. PT/OT. She can weightbear as tolerated in the knee immobilizer. She can take it off and work on some gentle knee motion. Knee immobilizer should be on for all weightbearing activities and at nighttime. 3. Pain control, doing pretty well with current pain regimen. 4. Antibiotics. She is on IV vancomycin and rifampin now. ID has been consulted. She will need 6 weeks of IV antibiotics. We will wait for final determination based on ID's recommendations. 5. Disposition: She is planning to be discharged to home with some home health and IV antibiotic management eventually.
[2020-02-03] MEDS: CHECK SCOPOLAMINE PATCH PLACEMENT SCH ×3 (08:28→23:35)
[2020-02-03] MEDS: ASCORBIC ACID 500 MG TAB PO SCH ×2 (08:33→17:30)
[2020-02-03] MEDS: CHOLECALCIFEROL 1,000 UNITS 25 MCG TAB PO SCH (08:33)
[2020-02-03] MEDS: TAPENTADOL HCL ER 50 MG TABCR PO SCH ×2 (08:33→21:06)
[2020-02-03] MEDS: ASPIRIN 81 MG ECTAB PO SCH ×2 (08:33→21:06)
[2020-02-03] MEDS: rifAMPin 300 MG CAPSULE PO SCH ×2 (08:33→21:07)
[2020-02-03] MEDS: DOCUSATE SODIUM 100 MG CAP PO SCH ×2 (08:34→21:07)
[2020-02-03] MEDS: FERROUS GLUCONATE 324 MG TAB PO SCH ×2 (08:34→17:29)
[2020-02-03] MEDS: MULTIVITAMIN TAB PO SCH (08:34)
[2020-02-03] MEDS ORDERED: VANCOMYCIN TROUGH ONE (13:30)
[2020-02-03] MEDS: VANCOMYCIN HCL 1,750 MG in SODIUM CHLORIDE 0.9% 500 ML IV SCH (14:09)
--- NOTE | 2020-02-03 14:50 | Pharmacy Report ---
Pharmacy Abx Dose Short Note - Date of Service February 03, 2020 - Assessment & Plan Assessment * Ms Singh is a 55 year old F admitted s/p removal of L total knee with placement of antibiotic spacer. She has a history of b/l TKA in 2017. Has had reduced mobility and increased pain that has worsened to the point of requiring surgery. * Intra-operatively, patient received 1650 mg (15 mg/kg) of IV vancomycin ~ 1100. Additional vancomycin was also mixed with the cement for the antibiotic spacer. * 4 different L knee specimens have been sent for gram stain and culture * Patient to be continued on vancomycin postoperatively for possible bone and joint infection. Rifampin has also been ordered. Microbiology 02/02/20 09:05 Knee,Left Gram Stain - Final 02/02/20 08:16 Knee,Left Gram Stain - Final 02/02/20 08:03 Knee Gram Stain - Final 02/02/20 07:53 Knee,Left Gram Stain - Final 02/02/20 09:05 Knee,Left Aerobic and Anaerobic Culture - Preliminary No growth to date. 02/02/20 08:16 Knee,Left Aerobic and Anaerobic Culture - Preliminary No growth to date. 02/02/20 08:03 Knee Aerobic and Anaerobic Culture - Preliminary No growth to date. 02/02/20 07:53 Knee,Left Aerobic and Anaerobic Culture - Preliminary No growth to date. Plan Vancomycin IV * Vanc level today: 19.9 mcg/mL * This level is prior to the first real maintenance dose (following modified load yesterday). It is difficult to interpret, but it does suggest that q24h dosing may be reasonable to attempt for this patient. * Surgeon would like to aim for q24h dosing in the event that patient requires prolonged vancomycin in the outpatient setting. * ID has been consulted. Will await their recommendations. Perhaps q24h Daptomycin would be another reasonable option? * Goal trough level for bone/joint infection : 15 to 20 mcg/mL * Trough level ordered for 02/04/20 to evaluate a level at 24 hour dosing * Note: this is PRIOR to steady state but want to assess early in the setting of elevated BMI and extended interval trialed * Dose will likely need adjusted if level outside of 10-15 mcg/mL range * It will be important to monitor vanc dosing/levels frequently if patient continues vanc therapy after discharge. Given patient's BMI (>40kg/m2), vanc accumulation is expected throughout the course of therapy. Pharmacy will continue to follow and will adjust dose/frequency as necessary. Thank you.
[2020-02-03] MEDS ORDERED: DAPTOMYCIN CONSULT ACTIVE PRN (15:03)
--- NOTE | 2020-02-03 15:03 | Infectious Disease Consult ---
Date of Consultation February 03, 2020 Assessment & Plan (1) Loosening of prosthesis of left total knee replacement: no current evidence of infection, continue abx pending culture results. will check esr as well. she sates she is to be on 6 weeks IV abx, she would prefer dapto as this is once daily pending results. History of Present Illness Attending Physician: Kieran Gee MD pt admitted with chronic knee pain > 2 years. went to OR for spacer yesterday, tolerated well. Initial surgery in 2017. multiple cultures done, all negative to date, no organisms on gram stain. no f/c at home, no wound opening, no drainage, no warmth. no previous abx. picc line placed today by ortho for 6 weeks IV abx and then repeat surgery in 6 weeks time. pt is oob to chair, doing well. pain controlled. afebrile since admission, wbc 5, creat 1. previous bone scan reported negative. She is currently on IV vanco and po rifampin. all remaining ros reviewed and are negative. Allergies Allergy/AdvReac Type Severity Reaction Status Date / Time No Known Allergies Allergy Mild Verified 02/02/20 06:03 Home Medications Home Medications Medication Instructions Recorded Confirmed Type acetaminophen 500 mg tablet 500 mg PO Q6H PRN 06/23/19 02/02/20 History antiarthritic combination no.2 900 900 mg PO HS tab 06/23/19 02/02/20 History mg tablet aspirin 81 mg chewable tablet 1 tab PO QAM tab 06/23/19 02/02/20 History ibuprofen 200 mg tablet 200 mg PO Q6H PRN tab 06/23/19 02/02/20 History naproxen sodium 220 mg tablet 220 mg PO BID PRN 06/23/19 02/02/20 History omega-3 acid ethyl esters 1 gram 1 cap PO HS cap 06/23/19 02/02/20 History capsule omeprazole 20 mg capsule,delayed 20 mg PO DAILY PRN 06/23/19 02/02/20 History release atenolol 50 mg tablet 50 mg PO HS #90 tab 10/07/19 02/02/20 Rx calcium carbonate-vitamin D3 1 tab PO DAILY 02/02/20 02/02/20 History [Calcium 500 With D] Patient History Medical History DJD (degenerative joint disease) of knee Hyperlipidemia Hypertension Loosening of prosthesis of left total knee replacement Obesity Osteoarthritis of knee Painful total knee replacement, left Prediabetes Surgical History Hx of hand surgery (05/2017) left hand fibroma removed Hx of oral surgery S/P dilation and curettage S/P tubal ligation Status post left knee replacement (04/2017) Status post total right knee replacement Family History Mother Diabetes Hypertension Hypercholesteremia Daughter Manning syndrome Father Prostate cancer Grandmother (Maternal) Diabetes Denies family history of Ovarian cancer Myocardial infarction Breast cancer Colorectal cancer Social History Preferred Language: [place] Communication Ability: Effective Visual Impairment: No Limitations Hearing Ability: Normal Permit Coordinator Required: No Beliefs That Will Affect Care: None marital status: Current Living Situation: Spouse current occupational status: employed 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[employer]) Other Information That Helps Us Care for You: No Feels Safe at Home: Yes Safety Concerns: Feels Safe At This Time Smoking Status: Never smoker Do You Dip or Chew Tobacco: No ; Second Hand Exposure: No ; Hx Alcohol Use: Yes Alcohol type: wine Alcohol Intake Frequency: Rarely Hx Substance Use: No Dental Care, Regularly: Yes Physical Activity Frequency: Does not Exercise Seatbelt Use: always Sunscreen Use: Yes Review of Systems Review of Systems: All systems reviewed & are unremarkable except as noted in HPI & below Physical Exam Constitutional: WD/WN, vitals as above Eyes: PERRL, conjunctivae normal, anicteric sclerae ENMT: external ear and nose normal, oropharynx normal Neck: normal visual inspection Respiratory: normal respiratory effort, lungs clear to auscultation Cardiovascular: RRR, no murmur, no edema Musculoskeletal: no cyanosis or clubbing, extremities motor strength 5/5 Skin: no rashes, warm and dry Psychiatric: A+Ox3, euthymic affect Results & Data ([facility]) Vital Signs (Past 12 Hours) Vital Signs Temp Pulse Resp BP BP Pulse Ox 02/03/20 11:55 37.0 C 66 18 105/64 98 02/03/20 07:15 36.5 C 60 14 103/66 96 02/03/20 03:35 36.5 C 62 15 94/60 L 97 Laboratory Results Microbiology 02/02/20 09:05 Knee,Left Gram Stain - Final 02/02/20 09:05 Knee,Left Aerobic and Anaerobic Culture - Preliminary No growth to date. 02/02/20 08:16 Knee,Left Gram Stain - Final 02/02/20 08:16 Knee,Left Aerobic and Anaerobic Culture - Preliminary No growth to date. 02/02/20 08:03 Knee Gram Stain - Final 02/02/20 08:03 Knee Aerobic and Anaerobic Culture - Preliminary No growth to date. 02/02/20 07:53 Knee,Left Gram Stain - Final 02/02/20 07:53 Knee,Left Aerobic and Anaerobic Culture - Preliminary No growth to date. PG Care Time/CCT Total # of Minutes Spent Total Time Spent with Patient: Total time spent is greater than 50% in coordination of care (as documented) at patient's floor/unit and/or counseling patient: Coding Level of Care Code 18706 Inpt Consult Level 4 Diagnoses Loosening of prosthesis of left total knee replacement T84.033A
[2020-02-03] MEDS: SENNA 8.6 MG TAB PO SCH (21:07)
[2020-02-03] MEDS: ATENOLOL 50 MG TABLET PO SCH (21:07)
[2020-02-03] MEDS: OMEGA-3 (PURIFIED FISH OIL) 1 GM CAP PO SCH (21:07)
[2020-02-03] MEDS: HYDROmorphone INJ 0.5 MG/0.5 ML SYR IV PRN (22:05)
[2020-02-04] MEDS: ACETAMINOPHEN 500 MG TAB PO SCH (05:08)
[2020-02-04] MEDS: KETOROLAC 30 MG/ML VIAL IV SCH ×2 (05:08→11:09)
[2020-02-04 06:47] LABS: Creatinine Clr Calc Pharmacy 64.6 ml/min; Est GFR (African American) 58.7; Est GFR (Non-African American) 50.6
[2020-02-04 07:57] VITALS: BP 91/56; PULSE 65; TEMP 98.4; O2SAT 96
--- NOTE | 2020-02-04 08:13 | Progress Notes ---
DATE: 02/04/2020 SUBJECTIVE: A 55-year-old white female postop day 2 from resection arthroplasty and placement of antibiotic spacer for septic loosening of her total knee replacement. She is doing reasonably well. Doing okay with pain medicines. No chest pain or shortness of breath. Not feeling dizzy or lightheaded. OBJECTIVE: VITAL SIGNS: Temperature 36.8. Vital signs stable. GENERAL: Shows a pleasant, middle-aged female. She is sitting up in her bedside chair, looks comfortable. EXTREMITIES: Examination of the left leg reveals the leg to be well aligned. She does have some bloody drainage on the inferior aspect of her dressing. She can almost do a straight leg raise. She is neurologically intact. LABORATORY DATA: Culture results are no growth, there are 4 culture results. Frozen section revealed multiple polys per high power field, in some areas 50+. ASSESSMENT: A 55-year-old white female postoperative day 2 from resection arthroplasty and placement of antibiotic spacer for septic loosening of her total knee replacement. Clinically, her knee obviously looked infected with purulent fluid and many polys per high power field. Certainly, there is about a 10% chance of that she will not grow anything. I do think we need to treat her for methicillin-resistant Staphylococcus. She is currently on daptomycin and rifampin. PLAN: 1. DVT prophylaxis including thigh-high TEDs, SCDs, and aspirin twice a day. 2. PT/OT. She can weightbear as tolerated in the knee immobilizer. Gentle knee motion several times a day. 3. Antibiotic management. She has been switched to daptomycin, which is a once a day dosing and rifampin. We will keep her on that and just follow her cultures over time. 4. Disposition: Hopeful discharge today if antibiotic as an outpatient can be arranged.
[2020-02-04] MEDS: TAPENTADOL HCL ER 50 MG TABCR PO SCH (09:22)
[2020-02-04] MEDS: OXYCODONE HCL IR 5 MG TAB (IMMEDIATE RELEASE) PO PRN (09:22)
[2020-02-04] MEDS: ASCORBIC ACID 500 MG TAB PO SCH (09:23)
[2020-02-04] MEDS: rifAMPin 300 MG CAPSULE PO SCH (09:23)
[2020-02-04] MEDS: ASPIRIN 81 MG ECTAB PO SCH (09:23)
[2020-02-04] MEDS: FERROUS GLUCONATE 324 MG TAB PO SCH (09:23)
[2020-02-04] MEDS: DOCUSATE SODIUM 100 MG CAP PO SCH (09:23)
[2020-02-04] MEDS: CHECK SCOPOLAMINE PATCH PLACEMENT SCH (09:24)
[2020-02-04] MEDS: CHOLECALCIFEROL 1,000 UNITS 25 MCG TAB PO SCH (09:24)
[2020-02-04] MEDS: MULTIVITAMIN TAB PO SCH (09:24)
[2020-02-04] MEDS ORDERED: DAPTOmycin 475 MG in SYRINGE 0 ML IV SCH ×2 (12:00→14:00)
[2020-02-04] MEDS ORDERED: VANCOMYCIN TROUGH ONE (13:30)
[2020-02-04] MEDS ORDERED: VANCOMYCIN HCL 1,750 MG in SODIUM CHLORIDE 0.9% 500 ML IV SCH (14:00)
--- NOTE | 2020-02-10 08:23 | Discharge Summary (DS) ---
ADMITTING PHYSICIAN AND SURGEON: Dr. Kieran Gee. 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 PROCEDURE PERFORMED: Removal of left total knee arthroplasty and placement of articulating antibiotic spacer. SECONDARY DIAGNOSES: Degenerative joint disease, hyperlipidemia, hypertension, obesity, loosening of the left total knee arthroplasty, prediabetes. CONSULTS: Dr. Sun for infectious disease service. HISTORY AND PHYSICAL EXAMINATION: Well-documented in the patient's chart. HOSPITAL COURSE: The patient was admitted on 02/02/2020, underwent a resection arthroplasty and placement of an articulating spacer to her left knee. She tolerated the procedure well. There were no complications. Intraoperative Gram stain showed no organisms and final cultures were negative. She did have areas of 20-80 PMNs per high power field under frozen section intraoperatively. She was transferred to the PACU postoperatively and later to the orthopedic floor for further care. She was given some vancomycin postoperatively and infectious disease was consulted and she was eventually changed to daptomycin and rifampin for antibiotic use. Hemoglobin, hematocrit and vital signs were monitored during her hospital stay and remained stable. She did not require any blood transfusions. There were no complications. On postoperative day 2, she was tolerating a regular diet, pain was controlled with oral pain medicine. She was participating in physical therapy. On postop day 2, she was discharged home, set up with home health services. She was given printed discharge instructions. She was instructed to be weightbearing as tolerated with the knee immobilizer on while weightbearing. Continue her home medications. She was given new prescriptions for extra-strength Tylenol, aspirin, daptomycin, iron supplement, Zofran, oxycodone and rifampin. Continue physical therapy, MISTY stockings. Follow up approximately 2 weeks postop or sooner if there are any problems or concerns.
== END 2020-02-04 12:19 | disposition home health service (06) ==
LOC: ASU 05:39 → 3E 05:39

== ENCOUNTER 2020-03-25 05:14 | Observation (INO) ==
--- NOTE | 2020-03-19 14:58 | Anesthesiology Consultation ---
Date of Service March 19, 2020 Assessment & Plan (1) Encounter for pre-operative examination: Per nursing phone assessment on 03/17/20: Travel screen- Lives in [facility]. No known COVID-19 positive contacts. No current COVID-19 related symptoms. Patient had COVID-19 testing for surgeon preop protocol on 03/18/20- results pending. - S/P Left TKA revision: 02/02/20: SAB + PNB at [facility] Chart Review Chart Review: Acceptable Risk for Surgery (pending COVID-19 test results) and Patient NOT seen in Pre Admission Testing History Surgery Operation Date: 03/25/20 10:40 Proposed Procedures p Left Total Knee Replacement Revision, Removal Antibiotic Spacer - Kieran Gee MD Height/Weight Height: 5 ft 5 in Weight: 108.862 kg Allergies Allergy/AdvReac Type Severity Reaction Status Date / Time No Known Allergies Allergy Mild Verified 03/18/20 08:49 Medications Home Medications Medication Instructions Recorded Confirmed Last Taken antiarthritic combination no.2 900 900 mg PO HS tab 06/23/19 03/18/20 02/01/20 22:00 mg tablet ibuprofen 200 mg tablet 200 mg PO Q6H PRN tab 06/23/19 03/18/20 01/26/20 naproxen sodium 220 mg tablet 220 mg PO BID PRN 06/23/19 03/18/20 01/19/20 omega-3 acid ethyl esters 1 gram 1 cap PO HS cap 06/23/19 03/18/20 01/19/20 capsule omeprazole 20 mg capsule,delayed 20 mg PO DAILY PRN 06/23/19 03/18/20 01/02/20 release atenolol 50 mg tablet 50 mg PO HS #90 tab 10/07/19 03/18/20 02/01/20 22:00 calcium carbonate-vitamin D3 1 tab PO DAILY 02/02/20 03/18/20 02/01/20 22:00 [Calcium 500 With D] oxycodone 5 - 10 mg PO Q6H PRN #40 tab 02/03/20 03/18/20 Unknown ondansetron HCl [Zofran] 4 mg PO TID PRN 15 Days #30 tab 02/04/20 03/18/20 Unknown rifampin 300 mg capsule 300 mg PO BID #60 cap 02/24/20 03/18/20 Unknown acetaminophen [Acetaminophen Extra 1,000 mg PO TID PRN 03/17/20 03/18/20 Unknown Strength] Past Medical History Medical History DJD (degenerative joint disease) of knee Hyperlipidemia monitoring -- no meds Hypertension 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 Obesity Osteoarthritis of knee Painful total knee replacement, left Prediabetes monitoring -- no meds Past Family History Family History Mother Diabetes Hypertension Hypercholesteremia Daughter Manning syndrome Father Prostate cancer Grandmother (Maternal) Diabetes Denies family history of Ovarian cancer Myocardial infarction Breast cancer Colorectal cancer Past Surgical History Surgical History Hx of hand surgery (05/2017) left hand fibroma removed Hx of knee surgery left knee revision with antibiotic spacer placed (01/2020) Hx of oral surgery S/P dilation and curettage S/P PICC central line placement current right upper arm S/P tubal ligation Status post left knee replacement (04/2017) Status post total right knee replacement Social History Smoking Status: Never smoker Do You Dip or Chew Tobacco: No Hx Alcohol Use: Yes Alcohol type: wine alcohol intake frequency: holidays/special occasions only Hx Substance Use: No substance use type: does not use Testing Laboratory Results 03/18/20 WBC 6.42 H/H 11.4/35.7 PLATELETS 242 SODIUM 140 POTASSIUM 4.1 CHLORIDE 109 CO2 26 BUN 26 CREATININE 1.24 GLUCOSE 95 01/29/20 PT: 11.5 PTT: 29.6 INR: 1.1 TYPE AND SCREEN: A+, antibody - 11/01/19 HGBA1C 6.0% Electrocardiogram Date: 01/29/20 NSR at 72bpm. Low voltage QRS. Cannot r/u anterior infarct (cited on/before 02/19/17 per cardiology) Chest X-Ray Date: 01/29/20 Findings: + NAD Echocardiogram Date: 03/01/17 EF: 55-60% LV size, wall thickness and function are normal. No RWMA. Trace to mild TR.
[2020-03-25] MEDS ORDERED: CEFAZOLIN 2000MG 2,000 MG/15 ML SYR IV SCH (06:00)
[2020-03-25] MEDS ORDERED: SCOPOLAMINE 1.5 MG TDSY TD SCH (06:00)
[2020-03-25] MEDS ORDERED: FAMOTIDINE 20 MG TAB PO SCH (06:00)
[2020-03-25] MEDS ORDERED: BUPIVACAINE LIPOSOME/PF 266 MG, BUPIVACAINE/EPINEPHRINE 50 ML, SODIUM CHLORIDE 0.9% 30 ... INFIL SCH (06:00)
[2020-03-25] MEDS ORDERED: ACETAMINOPHEN 500 MG TAB PO SCH (06:00)
[2020-03-25] MEDS ORDERED: LR 60ML/HR IV SCH (06:00)
[2020-03-25] MEDS ORDERED: GABAPENTIN 900 MG DOSE PO SCH (06:00)
[2020-03-25] MEDS ORDERED: LR 500ML BOLUS, THEN 15ML/HR IV SCH (06:00)
[2020-03-25] MEDS ORDERED: TRANEXAMIC ACID 1,000 MG **IV Intra-op IV SCH (06:00)
[2020-03-25] MEDS ORDERED: METOCLOPRAMIDE HCL 10 MG TABLET PO SCH (06:00)
[2020-03-25] MEDS ORDERED: ROPIVACAINE 0.5% 5 MG/ML 30 ML VIAL ONE (06:21)
[2020-03-25] MEDS ORDERED: BUPIVACAINE 0.5 % 5 MG/1 ML PF 10ML VIAL ONE (06:22)
[2020-03-25] MEDS: CHECK SCOPOLAMINE PATCH PLACEMENT SCH (06:27)
[2020-03-25] MEDS ORDERED: MIDAZOLAM HCL 1 MG/ML 2ML VIAL ONE ×2 (06:35→08:28)
[2020-03-25] MEDS ORDERED: fentaNYL citrate 100 MCG/2 ML VIAL ONE ×2 (06:35→09:24)
[2020-03-25] MEDS ORDERED: ONDANSETRON INJ 2 MG/ML 2 ML VIAL IV PRN ×2 (06:48→11:29)
[2020-03-25] MEDS ORDERED: ePHEDrine sulfate 50 MG/ML AMP IV PRN (06:48)
[2020-03-25] MEDS ORDERED: ATROPINE SULFATE 0.1 MG/ML 10ML SYR IV PRN (06:48)
[2020-03-25] MEDS ORDERED: HYDROmorphone INJ 1 MG/ML SYRINGE IV PRN (06:48)
--- NOTE | 2020-03-25 06:49 | History & Physical Bridge Note ---
Date of Service March 25, 2020 History & Physical Bridge Note I have examined the patient, reviewed the History & Physical and in the interval since the performance of the History & Physical I have noted the following changes of clinical significance: no changes noted
[2020-03-25] MEDS ORDERED: BUPIVACAINE 0.25% 30 ML VIAL ONE ×2 (06:50→07:17)
[2020-03-25] MEDS ORDERED: EpINEphrine HCL INJ 1 MG/ML 1ML SYRINGE ONE (06:51)
[2020-03-25] MEDS ORDERED: BUPIVACAINE LIPOSOME 1.3% 266 MG/20 ML VIAL ONE (06:52)
[2020-03-25] MEDS ORDERED: BACITRACIN INJ 50,000 UNIT VIAL ONE (06:52)
[2020-03-25] MEDS ORDERED: SODIUM CHLORIDE 0.9% PF 50 ML VIAL ONE (07:02)
[2020-03-25] MEDS ORDERED: VANCOMYCIN HCL 1000MG/20ML VIAL ONE (07:16)
[2020-03-25] MEDS ORDERED: PROPOFOL IV EMULSION 10 MG/ML 20 ML VIAL IV ONE ×4 (07:35→09:48)
[2020-03-25] MEDS ORDERED: ONDANSETRON INJ 2 MG/ML 2 ML VIAL ONE ×2 (07:37→09:55)
--- NOTE | 2020-03-25 10:20 | Post Operative Brief Note ---
PG Immediate Post Op with CF Date of Surgery March 25, 2020 Pre & Post Diagnosis Operation Date: 03/25/20 07:00 Pre-Op Diagnosis: Infected Total Knee Replacement left knee Post-Op Diagnosis: Infected Total Knee Replacement left knee I identified the patient and participated in the time-out.: Yes Procedure Operation Date: 03/25/20 07:00 Actual Procedures p Left Total Knee Revision, Removal Antibiotic Spacer(Left) - Kieran Gee MD Surgeon Kieran Gee MD Insole Taper Tate, PAC Estimated Blood Loss 100 Findings Consistent with Post-Op Diagnosis Fluids 1700 cc Specimens Specimen Description: Culture #1: Left Knee Joint Fluid Frozen #1: Left Knee poly for high powered culture Drains Ramirez Catheter Anesthesia Type Spinal MAC Complications none Disposition Accompanied Patient To Recovery: No Disposition: Recovery Room
--- NOTE | 2020-03-25 10:39 | Operative Report ---
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 I identified the patient and participated in the time-out.: Yes Procedure Operation Date: 03/25/20 07:00 Actual Procedures p Left Total Knee Revision, Removal Antibiotic Spacer(Left) - Kieran Gee MD Surgeon Kieran Gee MD Melter Assistant Tate, PAC Estimated Blood Loss 100 Findings Consistent with Post-Op Diagnosis Synovium was sent for frozen section which revealed a less than 1 poly-per high- power field. The knee joint fluid appeared benign. There is no signs of acute inflammation or residual infection. Fluids 1700 cc. Specimens Left knee synovium sent for frozen section as well as pathology. Left knee joint fluid sent for stat Gram stain aerobic anaerobic culture. Drains None. Anesthesia Type Spinal MAC Complications none Disposition Accompanied Patient To Recovery: No Disposition: Recovery Room Indications Patient is a 55-year-old female now about 2 and half years out from a left total knee replacement. She did pretty well for the first year and developed pain and discomfort and what was felt to be aseptic loosening of her tibial tray. She underwent a revision about 7 weeks ago and we found gross pus/purulent joint fluid. Clinically her knee appeared infected and she had a high level polys per high-power field despite the fact that never grew anything. She has been treated with antibiotic spacer as well as 6 weeks of IV antibiotics. Her laboratory parameters improved markedly including improved sed rate and C- reactive protein. I aspirated her knee and there was only a couple 100 of white cells in the joint fluid. We elected proceed with revision knee arthroplasty. Description of Procedure Operative implants consist of: 1. Biomet Vanguard 360 size 60 left posterior by femoral component with a 14 x 80 mm stem with a 2.5 mm offset and a 10 mm distal lateral and a 5 mm distal medial augment. 2. Biomet size 59 tibial tray with a 12 x 80 mm offset stem with a 2.5 mm offset, small wing, and 10 mm medial and lateral augments. 3. 59 x 16 mm Po stabilized polyethylene insert. Patient was taken to the operating identified and placed on the operating table supine position protectors were properly padded. IV antibiotics were 5 by anesthesia team. A left eye turn was then placed. A Ramirez catheter was placed in sterile fashion. Left thigh turn was then placed in the left lower extremities and prepped draped in usual sterile fashion. The left leg was elevated and exsanguinated with use of an Esmarch and turns placed at 300 mmHg. An anterior posterior left knee was then performed using the previous incision. I did ellipse a little area of the skin superiorly where she had a little bit of a chronic scab. Sharp dissection was gone through subcutaneous is down to the extensor mechanism. A medial parapatellar arthrotomy incision was made. We did send some this fluid off for stat Gram stain and aerobic and anaerobic culture. Some subperiosteal dissection was carried out medially. The fat the fat and scar tissue from each patella tendon around the patella were then debrided. A complete suprapatellar and medial and lateral left synovectomies were then performed. I did send the synovium off for pathology which revealed less than 1 polys per high-power field. Considering this we elected proceed with revision. Great care was taken throughout the procedure to protect the patella tendon insertion. I did place a Steinmann pin in the tibial tubercle during the procedure to protect the patella tendon is sure it really continue detachment. The knee was flexed and the patella was subluxated laterally. The distal cement and a tibial polyethylene were then removed without incident. The tibia was exposed. I then remove the antibiotic dowel and then I reamed the tibia up to a size 14. The intramedullary alignment device was placed on the IM ursula and the proximal tibial cut was made to move out a millimeter bone from the most efficient aspect medial tibial plateau. This just took off some of the scar tissue and expose good bone. I then prepared the tibia for a 2.5 mm offset stem with a small cruciate wing and a 59 tibial tray. This was assembled and placed in the tibia and fit nicely. We did place 10 mm augments due to the fairly significant bone deficiency. Attention drawn the femur. With the use of a sawblade and a stacked osteotome technique the femoral component was removed. Great care was taken to protect the underlying bone. We did remove this with fairly minimal bone removal but did remove all the cement. I then remove the intramedullary dowel. I then reamed the femur up to a size 14. We then made a distal cut to move out a millimeter of bone. The femur was sized to a size 60. The AP cutting block was pinned parallel to the epicondylar axis and also verified to have equal flexion extension gaps. The anterior cut, anterior chamfer, posterior cut, posterior chamfer cuts were made. The component was assembled and the box guide was placed and the box cut was made. We then assembled the femoral component and placed in the fit fairly nicely. Upon examining the knee with a polyethylene in place the extension gap seemed bigger than the flexion gap so we did place 5 mm augments on the medial side and the 10 mm augment laterally as she had a little bit more bone deficit deficiency laterally. Upon doing this we were able to equalize the flexion aches and extension gaps. The knee seem to fit most appropriately with a 16mm insert. I elect to place these implants. The wound was irrigated with copious amounts of pulsatile lavage solution. A double batch of Palacos G cement was mixed with 2 additional grams of vancomycin. The femoral component was then implanted cementing the metaphyseal and articular surface. The tibial component was cemented in place in a similar fashion cementing the metaphyseal component along with the surface. All extraneous cement was removed. A 16 mm posterior box polyethylene insert was pl aced the knee was brought in full extension total cement hardened. Final cement checkup then performed. I elected not to resurface the kneecap. Attention drawn toward closing. The tourniquet was let down for turn time 120 minutes. Hemostasis assured use electrocautery. I did inject locally with 100 cc of combination of 20 cc of Exparel, 30 cc normal saline, 50 cc of half percent Marcaine with epinephrine. Wound was then irrigated extensively. Extensor mechanism closed with combination 1 PDS suture #1 Vicryl suture in [id number] fashion for extensor mechanism checked found to be intact the subcutaneous tissue then closed with 2 Dexon suture in a buried knot fashion skin was closed with 3-0 nylon suture and a combination of horizontal mattress and simple fashion. Leg was then cleaned dried and sterile dressing composed of Xeroform, 4 x 4's, sterile cast padding, Gregg bandage were applied. Patient was then transferred to the recovery room in stable condition. The patient tolerated the procedure well no complications. I attest to the content of the Intraoperative Record and any orders documented therein. Any exceptions are noted below.
--- NOTE | 2020-03-25 10:50 | XRay Report ---
XR knee LT 1 or 2V routine CLINICAL HISTORY: Surgical Post Op. Left knee implant. COMPARISON STUDY: Left knee 02/02/2020. FINDINGS: Patient is status post a long stemmed left total knee arthroplasty. The hardware appears in tact. No fracture or dislocation. Subcutaneous gas anteriorly is likely postoperative. IMPRESSION: Status post left total knee arthroplasty. No evidence for hardware complication. ACT 112: Negative or not required by law. Electronically signed by: Pietro Bradshaw M.D. 03/25/2020 10:49 AM
[2020-03-25] MEDS ORDERED: PROMETHAZINE HCL 6.25 MG in SODIUM CHLORIDE 0.9% 50 ML IV ONE (11:00)
--- NOTE | 2020-03-25 11:02 | Anesthesiology Progress Note ---
Date of Service March 25, 2020 Anesthesia Post Procedure Vital Signs Vital Signs: Temp Pulse Pulse Resp BP Pulse Ox 03/25/20 10:50 62 15 127/67 100 03/25/20 10:40 65 12 119/63 100 03/25/20 10:30 67 12 127/70 100 03/25/20 10:24 36.3 C L 74 13 102/66 98 03/25/20 06:00 36.7 C 67 18 124/72 95 Pain Intensity Right Knee: Pain Intensity: 0 Transfer of Care Handoff Completed per policy Notes Mental Status: alert / awake / arousable Patient Amnestic to Procedure: Yes Nausea / Vomiting: adequately controlled Pain: adequately controlled Airway Patency, RR, SpO2: stable & adequate BP & HR: stable & adequate Hydration State: stable & adequate Anesthetic Complications: no major complications apparent
[2020-03-25] MEDS ORDERED: MAGNESIUM HYDROXIDE SUSP 30 ML UDC PO PRN (11:29)
[2020-03-25] MEDS ORDERED: bisacodyL 10 MG SUPP PR PRN (11:29)
[2020-03-25] MEDS ORDERED: METOCLOPRAMIDE HCL INJ 5 MG/ML 2 ML VIAL IV PRN (11:29)
[2020-03-25] MEDS ORDERED: PANTOprazole 40 MG TAB PO PRN (11:29)
[2020-03-25] MEDS ORDERED: NALOXONE HCL 0.4 MG/1 ML VIAL/CARP IV PRN (11:29)
[2020-03-25] MEDS ORDERED: ALUMINUM/MAGNESIUM SUSP 30 ML UDC PO PRN (11:29)
[2020-03-25] MEDS ORDERED: [UNRECOGNIZED DRUG - OTHER] PO PRN (11:50)
[2020-03-25] MEDS: SODIUM CHLORIDE 0.9% 1000ML 1,000 ML IV SCH ×2 (12:05→20:20)
[2020-03-25] MEDS: KETOROLAC TROMETHAMINE 15 MG/ML VIAL IV SCH ×3 (12:05→23:51)
[2020-03-25] MEDS: HYDROmorphone INJ 0.5 MG/0.5 ML SYR IV PRN ×2 (12:34→16:57)
[2020-03-25] MEDS: CEFAZOLIN 2000MG 2,000 MG/15 ML SYR IV SCH ×2 (14:29→22:09)
[2020-03-25] MEDS: ACETAMINOPHEN 500 MG TAB PO SCH ×2 (14:29→21:12)
[2020-03-25] MEDS ORDERED: TRANEXAMIC ACID / 0.7% NACL 1,000 MG/100 ML BAG IV SCH (17:00)
[2020-03-25] MEDS: FERROUS GLUCONATE 324 MG TAB PO SCH (17:45)
[2020-03-25] MEDS: ASCORBIC ACID 500 MG TAB PO SCH (17:45)
[2020-03-25] MEDS: ASPIRIN 81 MG ECTAB PO SCH (20:21)
[2020-03-25] MEDS ORDERED: SENNA 8.6 MG TAB PO SCH (21:00)
[2020-03-25] MEDS ORDERED: OMEGA-3 (PURIFIED FISH OIL) 1 GM CAP PO SCH (21:00)
[2020-03-25] MEDS ORDERED: ATENOLOL 50 MG TABLET PO SCH (21:00)
[2020-03-25] MEDS: DOCUSATE SODIUM 100 MG CAP PO SCH (21:11)
[2020-03-25] MEDS: OXYCODONE HCL IR 5 MG TAB (IMMEDIATE RELEASE) PO PRN (22:08)
[2020-03-26] MEDS: CHECK SCOPOLAMINE PATCH PLACEMENT SCH ×2 (00:33→07:56)
[2020-03-26] MEDS: OXYCODONE HCL IR 5 MG TAB (IMMEDIATE RELEASE) PO PRN ×2 (03:55→08:03)
[2020-03-26] MEDS: SODIUM CHLORIDE 0.9% 1000ML 1,000 ML IV SCH (05:10)
[2020-03-26] MEDS: ACETAMINOPHEN 500 MG TAB PO SCH (05:17)
[2020-03-26] MEDS: KETOROLAC TROMETHAMINE 15 MG/ML VIAL IV SCH (05:18)
[2020-03-26 06:12] LABS: Hemoglobin 9.1 g/dL (12.0-16.0); Mean Corpuscular Hemoglobin 29.2 pg (25-34); Mean Corpuscular Hgb Conc 32.5 g/dL (32-36); Mean Corpuscular Volume 89.7 fL (80-100); Mean Platelet Volume 10.8 fL (7.4-10.4); Platelet Count 166 K/uL (130-400); RDW Coefficient of Variation 13.8 % (11.5-14.5); RDW Standard Deviation 45.1 fL (36.4-46.3); Red Blood Count 3.12 M/uL (4.2-5.4); White Blood Count 5.87 K/uL (4.8-10.8)
[2020-03-26 06:44] LABS: BUN Creatinine Ratio 19.1 (10-20); Calcium 7.8 mg/dl (8.5-10.1); Creatinine Clr Calc Pharmacy 47.3 ml/min; Est GFR (African American) 39.8; Est GFR (Non-African American) 34.4; Potassium 4.1 mmol/L (3.5-5.1)
[2020-03-26] MEDS: DOCUSATE SODIUM 100 MG CAP PO SCH (08:04)
[2020-03-26] MEDS: ASPIRIN 81 MG ECTAB PO SCH (08:04)
[2020-03-26] MEDS: ASCORBIC ACID 500 MG TAB PO SCH (08:04)
[2020-03-26] MEDS: FERROUS GLUCONATE 324 MG TAB PO SCH (08:04)
[2020-03-26] MEDS ORDERED: MULTIVITAMIN TAB PO SCH (09:00)
[2020-03-26] MEDS ORDERED: CALCIUM 600MG + VIT D 400 IU TAB PO SCH (09:00)
--- NOTE | 2020-03-26 09:01 | Progress Notes ---
DATE: 03/26/2020 SUBJECTIVE: A 55-year-old white female postop day 1 from a revision left total knee arthroplasty. She is doing well. Pain is controlled. Had a pretty good night. Anxious to go home. Denies any chest pain or shortness of breath. OBJECTIVE: VITAL SIGNS: Temperature 36.7. Vital signs stable. GENERAL: Physical examination shows a pleasant, middle-aged female. She is sitting up in her bedside chair, looks comfortable. EXTREMITIES: Examination of the left leg reveals the leg to be well aligned. Dressing is clean, dry and intact. She can dorsiflex and plantarflex her foot appropriately. She is neurologically intact. LABORATORY DATA: Hemoglobin 9.1. Hematocrit 28.0. Electrolytes are pretty stable. Creatinine is just slightly elevated. ASSESSMENT: A 55-year-old white female postop day 1 from left knee replacement, doing well. Pain is controlled. She is neurologically intact. Creatinine is little bit elevated and we are going to hold her Toradol. PLAN: 1. DVT prophylaxis include thigh-high TEDs, SCDs and aspirin twice a day. 2. PT/OT, weight bear as tolerated. Left total knee protocol. 3. Pain control, doing pretty well with current pain regimen. 4. Slightly elevated creatinine. We are going to stop the Toradol. 5. Disposition: She is planning to be discharged to home with some home health likely later today if doing okay.
--- NOTE | 2020-03-30 14:01 | Discharge Summary ---
Date of Service March 30, 2020 Admission HPI Per Admitting Provider Documented in the H&P Admission Exam (Per Admitting) Constitutional Documented in the H&P Discharge Data Consultations 03/25/20 11:29 Consult Case Management - Discharge Planning Routine Procedures Performed Operation Date: 03/25/20 07:00 Actual Procedures p Left Total Knee Revision, Removal Antibiotic Spacer(Left) - Kieran Gee MD Hospital Course (1) Status post revision of total replacement of left knee: 55-year-old female admitted on 03/25/2020, she underwent removal of antibiot ic spacer and total knee revision. She tolerated the procedure well and there were no complications. She is transferred to the PACU postoperatively and later to the orthopedic floor for further care. She was given Ancef for antibiotic prophylaxis. MISTY stockings, SCDs, and aspirin for DVT prophylaxis. Her hemoglobin, hematocrit, and vital signs were monitored during hospital stay remained stable. She did not require blood transfusions. There were no complications. By postoperative day 1 she was tolerating a regular diet, pain was controlled with oral pain medicine and she was participating in physical therapy. On postoperative day 1 she was discharged home and set up with home health. She was given printed discharge instructions, As well as new prescriptions for extract Tylenol, aspirin, iron supplement, and oxycodone. Continue her home medications the exception of rifampin which was discontinued. Continue physical therapy, she is weightbearing as tolerated. Continue MISTY stockings. Follow-up in approximately 2 weeks postoperatively or sooner if there are any problems or concerns.harged home and set up with home health services. She was given printed discharge instructions Coding Level of Care Code None Diagnoses Status post revision of total replacement of left knee Z96.652
== END 2020-03-26 10:18 | disposition home health service (06) ==
LOC: ASU 05:14 → 3W 05:14 → 3E 18:45